=== PATIENT | female | born 1950 | race Caucasian/White ===

== ENCOUNTER → 2018-01-21 08:49 | Outpatient (CLI) | payer MEDICARE, OTHER, SELFPAY ==
[2018-01-21 13:27] LABS: Absolute Lymphocyte Count 1.83 X10^3/ul (0.83-4.51); Absolute Neutrophil Count 4.6 X10^3/uL (2.0-7.7); Basophil# 0.02 X10^3/uL; Basophil% 0.3 % (0-1); Eosinophil# 0.12 X10^3/uL; Eosinophils% 1.7 % (0-5); Hematocrit 42.5 % (37-47); Hemoglobin 14.1 g/dl (12.0-15.0); Lymphocyte # 1.83 X10^3/ul (4.0); Lymphocyte % 25.8 % (19-41); Mean Corp Hgb Conc 33.2 g/gl (32-36); Mean Corpuscular Hgb 31.1 pg (27.0-32.0); Mean Corpuscular Volume 93.8 fL (81-99); Mean Platelet Vol. 9.1 fl (6.2-12.0); Monocyte# 0.46 X10^3/uL; Monocyte% 6.5 % (0-10); Neutrophil # 4.63 X10^3/uL (2.7-7.7); Neutrophil % 65.4 % (47-70); Platelet Count 346 K/mm3 (150-450); RBC Distribution Width SD 46.5 fl (35.1-43.9); Red Blood Count 4.53 M/mm3 (4.2-5.4); White Blood Count 7.1 K/mm3 (4.4-11.0)
[2018-01-21 13:32] LABS: POSITIVE COUNT NO; POSITIVE DIFFERENTIAL NO; POSITIVE MORPHOLOGY NO
[2018-01-21 13:52] LABS: ALB/GLOB Ratio 1.2 RATIO (0.9-2.4); AST(SGOT) 20 U/L (15-37); Alanine Aminotransfer ALT/SGPT 34 U/L (13-56); Alkaline Phosphatase 48 U/L (45-117); Anion Gap 6 (5-15); BUN 10 mg/dL (7-18); BUN/Creat Ratio 15.3 RATIO (10-20); Calcium,Total 8.8 mg/dL (8.5-10.1); Chloride 99 mmol/L (98-107); Creatinine, Serum 0.65 mg/dL (0.55-1.02); EST Glomerular Filtration Rate 96 mL/min (>60); Est Glom Filt Rate - Afr Amer 116 mL/min (>60); Globulin 3.3 g/dL (2.2-4.2); Glucose 105 mg/dL (74-106); Potassium 3.5 mmol/L (3.5-5.1); Protein, Total 7.3 g/dL (6.4-8.2); Sodium Level 136 mmol/L (136-145); Thyroid Stim Hormone (TSH) 1.55 uIU/mL (0.358-3.74); Vitamin D,25 Hydroxy 41.2 ng/mL (29.95-100.01)
== END ==
PROVIDERS: Family Provider Family Medicine Geriatric Medicine; PCP Family Medicine Geriatric Medicine; Visit Provider Family Medicine Geriatric Medicine
DX: E55.9 Vitamin D deficiency, unspecified (principal); I10 Essential (primary) hypertension
CPT/HCPCS: 36415; 80053; 82306; 84443; 85025

== ENCOUNTER → 2018-06-13 16:51 | Outpatient (CLI) | payer MEDICARE, OTHER, SELFPAY ==
[2018-06-13 17:15] LABS: Absolute Neutrophil Count 4.5 X10^3/uL (2.0-7.7); Basophil# 0.02 X10^3/uL; Basophil% 0.3 % (0-1); Eosinophil# 0.09 X10^3/uL; Eosinophils% 1.3 % (0-5); Hematocrit 40.9 % (37-47); Hemoglobin 13.4 g/dl (12.0-15.0); Mean Corp Hgb Conc 32.8 g/gl (32-36); Mean Corpuscular Hgb 30.8 pg (27.0-32.0); Mean Platelet Vol. 8.8 fl (6.2-12.0); Monocyte# 0.58 X10^3/uL; Monocyte% 8.1 % (0-10); Neutrophil # 4.45 X10^3/uL (2.7-7.7); Neutrophil % 62.2 % (47-70); Platelet Count 305 K/mm3 (150-450); RBC Distribution Width CV 13.8 % (11.6-14.6); RBC Distribution Width SD 47.7 fl (35.1-43.9); Red Blood Count 4.35 M/mm3 (4.2-5.4); White Blood Count 7.2 K/mm3 (4.4-11.0)
[2018-06-13 17:28] LABS: POSITIVE COUNT NO; POSITIVE DIFFERENTIAL NO; POSITIVE MORPHOLOGY NO
[2018-06-13 17:38] LABS: ALB/GLOB Ratio 1.2 RATIO (0.9-2.4); AST(SGOT) 17 U/L (15-37); Alanine Aminotransfer ALT/SGPT 27 U/L (13-56); Albumin, Serum 3.7 g/dL (3.2-5.0); Alkaline Phosphatase 55 U/L (45-117); Amylase 45 U/L (25-115); Anion Gap 9 (5-15); BUN 17 mg/dL (7-18); Calcium,Total 8.6 mg/dL (8.5-10.1); Chloride 98 mmol/L (98-107); Creatinine, Serum 0.77 mg/dL (0.55-1.02); EST Glomerular Filtration Rate 79 mL/min (>60); Est Glom Filt Rate - Afr Amer 95 mL/min (>60); Globulin 3.2 g/dL (2.2-4.2); Glucose 125 mg/dL (74-106); Lipase 140 U/L (73-393); Potassium 3.6 mmol/L (3.5-5.1); Protein, Total 6.9 g/dL (6.4-8.2); Sodium Level 137 mmol/L (136-145)
== END ==
PROVIDERS: Family Provider Family Medicine Geriatric Medicine; PCP Family Medicine Geriatric Medicine; Visit Provider Family Medicine Geriatric Medicine
DX: R10.9 Unspecified abdominal pain (principal); N39.0 Urinary tract infection, site not specified
CPT/HCPCS: 36415; 74177; 80053; 82150; 83690; 85025; 87086; 87088; Q9967

== ENCOUNTER → 2018-06-20 10:07 | Outpatient (CLI) | payer MEDICARE, OTHER, SELFPAY ==
--- NOTE | 2018-06-20 10:10 | MRI_ITS ---
STUDY: MRI ABDOMEN WITHOUT CONTRAST REASON FOR EXAM: Female, 68 years old. abd pain-more to the right. Abnormal CT TECHNIQUE: Standardized fat and water weighted pulse sequences were obtained in all 3 orthogonal planes. COMPARISON: June 13, 2018 FINDINGS: The visualized lung bases are unremarkable. The visualized portions of the heart are within normal limits. Normal liver. Normal gallbladder and extrahepatic biliary system. Normal spleen. Once again note is made of a cyst associated with the tail of the pancreas. This cyst measures approximately 1.8 cm in diameter and other than the calcification that was identified on the periphery of the cyst best seen on prior CT exam the cyst otherwise has a simple appearance. On this study I see no evident connection of the cyst to the ductal system. I suspect it most likely represents a benign unilocular cyst. Consider six-month follow-up to assure stability and if stable annual screening a period of 3 years. If stable at that point than this finding is very likely to be benign. The pancreas otherwise has an unremarkable appearance. Normal bilateral adrenal glands. Normal right kidney. Normal left kidney. Normal visualized stomach. Normal small intestine. Normal colon. There is non-visualization of the appendix. Normal abdominal aorta. Normal inferior vena cava. Normal retroperitoneum. Normal abdominal wall. Normal osseous structures. MRI/MRCP Abdomen without Contrast IMPRESSION: Once again note is made of a cyst associated with the tail of the pancreas. This cyst measures approximately 1.8 cm in diameter and other than the calcification that was identified on the periphery of the cyst best seen on prior CT exam the cyst otherwise has a simple appearance. On this study I see no evident connection of the cyst to the ductal system. I suspect it most likely represents a benign unilocular cyst. Consider six-month follow-up to assure stability and if stable annual screening a period of 3 years. If stable at that point than this finding is very likely to be benign. The pancreas otherwise has an unremarkable appearance. Electronically Signed: Janay Merino MD at 16:37 EDT , Service support ,
== END ==
PROVIDERS: Family Provider Family Medicine Geriatric Medicine; PCP Family Medicine Geriatric Medicine; Visit Provider Family Medicine Geriatric Medicine
DX: K86.2 Cyst of pancreas (principal)
CPT/HCPCS: 74181

== ENCOUNTER → 2018-06-29 08:49 | Outpatient (CLI) | payer MEDICARE, OTHER, SELFPAY ==
--- NOTE | 2018-06-29 08:53 | BI_ITS ---
MAMMOGRAPHY - BILATERAL SCREENING REASON FOR EXAM: Female, 68 years old. Routine annual screening examination. PERTINENT HISTORY: Mother with breast cancer. Aunt with breast cancer. TECHNIQUE: Digital bilateral breast mary (3D mammographic acquisition) in the CC and MLO projections. 2-D mediolateral oblique (MLO) and craniocaudad (CC) views of both breasts were obtained. CAD: Full Field Digital Mammography with Computer Added Detection was performed. COMPARISON: Comparison is made with prior study dated June 14, 2017 and June 13, 2016. FINDINGS: Breast Composition: There are scattered areas of fibroglandular density. There are no dominant masses or suspicious calcifications. Stable gastric calcifications bilaterally. Stable calcifications in the deep slightly lateral portion of the right breast. No other significant abnormalities are identified. There has been no significant change since the prior study. BI/SCREENING MAMM (CAD), BILAT IMPRESSION: Stable bilateral screening mammogram. Yearly follow-up mammogram recommended. (A) ASSESSMENT CATEGORY: BIRADS Category 2: Benign. A letter regarding these results will be sent to the patient by the facility within 30 days. Approximately 10% of breast cancers are not detected by mammography. A normal mammogram should not delay biopsy of a clinically suspicious abnormality. [id number] Electronically Signed: Julio Ta MD at 8:47 EDT Tel [phone], Service support ,
== END ==
PROVIDERS: Family Provider Family Medicine Geriatric Medicine; PCP Family Medicine Geriatric Medicine; Visit Provider Obstetrics & Gynecology
DX: Z12.31 Encounter for screening mammogram for malignant neoplasm of breast (principal)
CPT/HCPCS: 77063; 77067

== ENCOUNTER → 2018-07-22 13:47 | Outpatient (CLI) | payer MEDICARE, OTHER, SELFPAY ==
[2018-07-22 16:31] LABS: Absolute Lymphocyte Count 2.14 X10^3/ul (0.83-4.51); Absolute Neutrophil Count 2.9 X10^3/uL (2.0-7.7); Basophil# 0.01 X10^3/uL; Basophil% 0.2 % (0-1); Eosinophil# 0.08 X10^3/uL; Eosinophils% 1.5 % (0-5); Hematocrit 41.1 % (37-47); Hemoglobin 13.3 g/dl (12.0-15.0); Lymphocyte # 2.14 X10^3/ul (4.0); Mean Corp Hgb Conc 32.4 g/gl (32-36); Mean Corpuscular Hgb 30.9 pg (27.0-32.0); Mean Corpuscular Volume 95.4 fL (81-99); Mean Platelet Vol. 9.2 fl (6.2-12.0); Monocyte# 0.31 X10^3/uL; Monocyte% 5.6 % (0-10); Neutrophil # 2.94 X10^3/uL (2.7-7.7); Neutrophil % 53.5 % (47-70); Platelet Count 313 K/mm3 (150-450); RBC Distribution Width CV 13.5 % (11.6-14.6); Red Blood Count 4.31 M/mm3 (4.2-5.4); White Blood Count 5.5 K/mm3 (4.4-11.0)
[2018-07-22 16:46] LABS: Vitamin D,25 Hydroxy 37.8 ng/mL (29.95-100.01)
[2018-07-22 16:53] LABS: ALB/GLOB Ratio 1.2 RATIO (0.9-2.4); AST(SGOT) 18 U/L (15-37); Alanine Aminotransfer ALT/SGPT 27 U/L (13-56); Albumin, Serum 3.8 g/dL (3.2-5.0); Alkaline Phosphatase 50 U/L (45-117); Anion Gap 9 (5-15); BUN 9 mg/dL (7-18); BUN/Creat Ratio 12.6 RATIO (10-20); Calcium,Total 8.8 mg/dL (8.5-10.1); Chloride 98 mmol/L (98-107); Creatinine, Serum 0.72 mg/dL (0.55-1.02); EST Glomerular Filtration Rate 86 mL/min (>60); Est Glom Filt Rate - Afr Amer 104 mL/min (>60); Globulin 3.3 g/dL (2.2-4.2); Glucose 92 mg/dL (74-106); Potassium 3.6 mmol/L (3.5-5.1); Protein, Total 7.1 g/dL (6.4-8.2); Sodium Level 135 mmol/L (136-145); Thyroid Stim Hormone (TSH) 1.62 uIU/mL (0.358-3.74)
[2018-07-22 17:11] LABS: POSITIVE COUNT NO; POSITIVE DIFFERENTIAL NO; POSITIVE MORPHOLOGY NO
[2018-07-24 12:33] LABS: Hep C Antibodies <0.1 s/co ratio (0.0-0.9)
== END ==
PROVIDERS: Family Provider Family Medicine Geriatric Medicine; PCP Family Medicine Geriatric Medicine; Visit Provider Family Medicine Geriatric Medicine
DX: I10 Essential (primary) hypertension (principal); Z13.89 Encounter for screening for other disorder; E55.9 Vitamin D deficiency, unspecified
CPT/HCPCS: 36415; 80053; 82306; 84443; 85025; 86803

== ENCOUNTER → 2019-01-16 14:19 | Outpatient (CLI) | payer MEDICARE, OTHER, SELFPAY ==
[2019-01-16 16:50] LABS: Absolute Lymphocyte Count 1.93 X10^3/ul (0.83-4.51); Absolute Neutrophil Count 2.9 X10^3/uL (2.0-7.7); Basophil# 0.02 X10^3/uL; Basophil% 0.4 % (0-1); Eosinophil# 0.08 X10^3/uL; Eosinophils% 1.5 % (0-5); Hematocrit 39.3 % (37-47); Hemoglobin 13.1 g/dl (12.0-15.0); Lymphocyte # 1.93 X10^3/ul (4.0); Mean Corp Hgb Conc 33.3 g/gl (32-36); Mean Corpuscular Hgb 30.5 pg (27.0-32.0); Mean Corpuscular Volume 91.6 fL (81-99); Mean Platelet Vol. 9.4 fl (6.2-12.0); Monocyte# 0.38 X10^3/uL; Monocyte% 7.1 % (0-10); Neutrophil # 2.94 X10^3/uL (2.7-7.7); Neutrophil % 54.8 % (47-70); Platelet Count 319 K/mm3 (150-450); RBC Distribution Width CV 13.5 % (11.6-14.6); RBC Distribution Width SD 44.4 fl (35.1-43.9); Red Blood Count 4.29 M/mm3 (4.2-5.4); White Blood Count 5.4 K/mm3 (4.4-11.0)
[2019-01-16 16:51] LABS: POSITIVE COUNT NO; POSITIVE DIFFERENTIAL NO; POSITIVE MORPHOLOGY NO
[2019-01-16 17:33] LABS: Vitamin D,25 Hydroxy 32.6 ng/mL (29.95-100.01)
[2019-01-16 17:36] LABS: ALB/GLOB Ratio 1.4 RATIO (0.9-2.4); AST(SGOT) 30 U/L (15-37); Alanine Aminotransfer ALT/SGPT 44 U/L (13-56); Alkaline Phosphatase 53 U/L (45-117); Anion Gap 7 (5-15); BUN 11 mg/dL (7-18); BUN/Creat Ratio 15.9 RATIO (10-20); Calcium,Total 8.5 mg/dL (8.5-10.1); Chloride 97 mmol/L (98-107); Creatinine, Serum 0.69 mg/dL (0.55-1.02); EST Glomerular Filtration Rate 89 mL/min (>60); Est Glom Filt Rate - Afr Amer 108 mL/min (>60); Globulin 2.9 g/dL (2.2-4.2); Glucose 82 mg/dL (74-106); Potassium 3.6 mmol/L (3.5-5.1); Protein, Total 6.9 g/dL (6.4-8.2); Sodium Level 133 mmol/L (136-145); Thyroid Stim Hormone (TSH) 1.28 uIU/mL (0.358-3.74)
== END ==
PROVIDERS: Family Provider Family Medicine Geriatric Medicine; PCP Family Medicine Geriatric Medicine; Visit Provider Family Medicine Geriatric Medicine
DX: I10 Essential (primary) hypertension (principal); E55.9 Vitamin D deficiency, unspecified
CPT/HCPCS: 36415; 80053; 82306; 84443; 85025

== ENCOUNTER → 2019-01-24 10:13 | Outpatient (CLI) | payer MEDICARE, OTHER, SELFPAY ==
--- NOTE | 2019-01-24 10:45 | MRI_ITS ---
STUDY: MR CHOLANGIOPANCREATOGRAPHY (MRCP) REASON FOR EXAM: Female, 68 years old. Follow-up MRI 6 months ago. Exist. No acute complaints. TECHNIQUE: Multisequence multiplanar MRI of the abdomen was performed without contrast. MRCP with 3-D volumetric reformatted images. MRI abdomen 06/20/2018, CT abdomen and pelvis 06/13/2018. COMPARISON: None. FINDINGS: Body wall soft tissues, osseous structures, distal esophagus, stomach, spleen, adrenal glands, bilateral kidneys, collecting systems and proximal ureters, retroperitoneum, and evaluated portions of small and large bowel exhibit no acute process. Normal liver, gallbladder, intrahepatic biliary tree and common bile duct. No significant pancreatic ductal ectasia. Minimal features of pancreatic atrophy. Simple appearing pancreatic tail cyst, sharply circumscribed margins, thin-walled, partially exhibit phytic, homogeneous internal T2 signal, intermediate internal T1 signal consistent with proteinaceous content. Greatest dimensions 1.76 cm anterior-posterior, 1.63 cm transverse, and 1.60 cm craniocaudal. No significant change compared to prior imaging. MRI/Abdomen without Contrast IMPRESSION: Simple appearing pancreatic tail cyst with a greatest dimension of 1.76 cm, no significant change compared to prior imaging. Follow-up surveillance imaging is recommended in 1 year. Electronically Signed: Huber Marcelino MD at 17:54 EDT Tel , Service support ,
== END ==
PROVIDERS: Family Provider Family Medicine Geriatric Medicine; PCP Family Medicine Geriatric Medicine; Referring Provider Family Medicine Geriatric Medicine; Visit Provider Family Medicine Geriatric Medicine
DX: K86.2 Cyst of pancreas (principal)
CPT/HCPCS: 74181

== ENCOUNTER → 2019-04-28 | Outpatient (CLI) | payer MEDICARE, OTHER, SELFPAY ==
--- NOTE | 2019-04-28 16:31 | RAD_ITS ---
HISTORY:HX FX LEFT KNEE, FALL AGAIN TODAY, PAIN POSTERIOR HX FX LEFT KNEE, FALL AGAIN TODAY, PAIN POSTERIOR COMPARISON: None FINDINGS: # of images incl. paperwork: 4 XR Knee Complete 4 Views or More: Left BONE AND JOINTS: There is slight irregularity medial tibial plateau however it appears relatively chronic linear area of low density that is seen at the articular cartilage. I would consider CT examination for further evaluation if clinically indicated. There is patellofemoral joint space narrowing as well as medial lateral joint space narrowing and marginal osteophytes. Spurring of the tibial spines. There is also patellofemoral joint space narrowing SOFT TISSUES: Small joint effusion No radiopaque foreign body. RAD/Knee 4 or More Views IMPRESSION: Slight irregularity at the medial tibial plateau however appears relatively chronic. The upright view suggested a small linear lucency. I would consider CT for further evaluation of clinically indicated. Small joint effusion Osteoarthritis at [id number] Reported and signed by: Berta Durbin DO Electronically Signed: Berta Durbin DO at 21:06 EDT Tel , Service support ,
== END | disposition home or self-care (01) ==
LOC: RAD 16:30
PROVIDERS: Family Provider Family Medicine Geriatric Medicine; PCP Family Medicine Geriatric Medicine; Referring Provider Family Medicine Geriatric Medicine; Visit Provider Family Medicine Geriatric Medicine
DX: M25.562 Pain in left knee (principal)
CPT/HCPCS: 73564

== ENCOUNTER → 2019-05-13 | Outpatient (CLI) | payer MEDICARE, OTHER, SELFPAY ==
--- NOTE | 2019-05-13 07:21 | CT_ITS ---
STUDY: CT LEFT KNEE WITHOUT CONTRAST REASON FOR EXAM: Female, 69 years old. Left knee pain. Recent fall. RADIATION DOSAGE (If Supplied By Facility): CTDIvol = ( 11.37 ) mGy, DLP = ( 242.64 ) mGycm TECHNIQUE: Transaxial CT imaging of the knee was performed. Coronal and sagittal images were reformatted. Individualized dose optimization techniques were used for this CT. COMPARISON: Comparison is made with prior radiograph dated April 28, 2019. FINDINGS: There is a 3 cm Bard 1.4 cm spur along the posterior medial aspect of the distal metaphysis of the femur. There is also evidence of a 7.7 mm x 16.9 mm while described lucency in the medial posterior aspect of the distal femoral metaphysis suggestive of a nonossifying fibroma. Moderate degree of medial joint space narrowing with spurs. Moderate degree of joint space narrowing involving the femoral patellar joint. There is also evidence of a 9 mm spur along the medial anterior femoral condyle. Normal lateral femoral condyle and lateral tibial plateau. There is preservation of the articular joint space of the lateral knee compartment. Normal proximal tibiofibular articulation. There is no joint effusion. The quadriceps tendon is grossly normal. The patellar tendon is grossly normal. Normal Hoffa's fat pad. The soft tissues are unremarkable. CT/Extremity Lower without Contra IMPRESSION: Degenerative changes as described. No fracture is seen. Electronically Signed: Julio Ta, at 14:51 EDT , Service support ,
== END | disposition home or self-care (01) ==
LOC: CT 07:18
PROVIDERS: Family Provider Family Medicine Geriatric Medicine; PCP Family Medicine Geriatric Medicine; Referring Provider Family Medicine Geriatric Medicine; Visit Provider Family Medicine Geriatric Medicine
DX: M25.562 Pain in left knee (principal)
CPT/HCPCS: 73700

== ENCOUNTER → 2019-06-30 09:56 | Outpatient (CLI) | payer MEDICARE, OTHER, SELFPAY ==
--- NOTE | 2019-06-30 10:01 | BI_ITS ---
MAMMOGRAPHY - BILATERAL SCREENING REASON FOR EXAM: Female, 69 years old. Routine annual screening examination. PERTINENT HISTORY: Mother with breast cancer. Aunt with breast cancer. TECHNIQUE: Digital bilateral breast cortez (3D mammographic acquisition) in the CC and MLO projections. 2-D mediolateral oblique (MLO) and craniocaudad (CC) views of both breasts were obtained. CAD: Full Field Digital Mammography with Computer Added Detection was performed. COMPARISON: Comparison is made with prior study dated June 29, 2018 and June 14, 2017. FINDINGS: Breast Composition: There are scattered areas of fibroglandular density. There are no dominant masses or suspicious calcifications. Stable appearance of the vascular calcifications bilaterally. Stable benign-appearing calcifications in the deep slightly lateral portion of the right breast. No other significant abnormalities are identified. There has been no significant change since the prior study. BI/SCREEN MAMM (CAD) W/CORTEZ BILAT IMPRESSION: Stable bilateral screening mammogram. Yearly follow-up mammogram recommended. (A) ASSESSMENT CATEGORY: BIRADS Category 2: Benign. A letter regarding these results will be sent to the patient by the facility within 30 days. Approximately 10% of breast cancers are not detected by mammography. A normal mammogram should not delay biopsy of a clinically suspicious abnormality. [id number] Electronically Signed: Julio Ta, at 12:46 EDT , Service support ,
== END ==
PROVIDERS: Family Provider Family Medicine Geriatric Medicine; PCP Family Medicine Geriatric Medicine; Referring Provider Obstetrics & Gynecology; Visit Provider Obstetrics & Gynecology
DX: Z12.31 Encounter for screening mammogram for malignant neoplasm of breast (principal)
CPT/HCPCS: 77063; 77067

== ENCOUNTER → 2019-07-23 10:01 | Outpatient (CLI) | payer MEDICARE, OTHER, SELFPAY ==
[2019-07-23 12:43] LABS: Absolute Lymphocyte Count 1.57 X10^3/uL (0.83-4.51); Absolute Neutrophil Count 4.2 X10^3/uL (2.0-7.7); Basophil# 0.03 X10^3/uL; Basophil% 0.5 % (0-1); Eosinophils% 1.6 % (0-5); Hematocrit 40.2 % (37-47); Hemoglobin 13.1 g/dL (12.0-15.0); Lymphocyte # 1.57 X10^3/ul (4.0); Lymphocyte % 24.9 % (19-41); Mean Corp Hgb Conc 32.6 g/dL (32-36); Mean Corpuscular Volume 95.3 fL (81-99); Monocyte# 0.42 X10^3/uL; Monocyte% 6.7 % (0-10); NRBC Flagged by Analyzer 0 % (0-5); Neutrophil # 4.18 X10^3/uL (2.7-7.7); Neutrophil % 66.1 % (47-70); Platelet Count 323 K/mm3 (150-450); RBC Distribution Width CV 13.1 % (11.6-14.6); Red Blood Count 4.22 M/mm3 (4.2-5.4); White Blood Count 6.3 K/mm3 (4.4-11.0)
[2019-07-23 13:19] LABS: ALB/GLOB Ratio 1.2 RATIO (0.9-2.4); AST(SGOT) 23 U/L (15-37); Alanine Aminotransfer ALT/SGPT 34 U/L (13-56); Albumin, Serum 3.8 g/dL (3.2-5.0); Alkaline Phosphatase 55 U/L (45-117); Anion Gap 9 (5-15); BUN 11 mg/dL (7-18); BUN/Creat Ratio 14.6 RATIO (10-20); Calcium,Total 9.2 mg/dL (8.5-10.1); Chloride 99 mmol/L (98-107); Creatinine, Serum 0.75 mg/dL (0.55-1.02); EST Glomerular Filtration Rate 81 mL/min (>60); Est Glom Filt Rate - Afr Amer 98 mL/min (>60); Globulin 3.3 g/dL (2.2-4.2); Glucose 99 mg/dL (74-106); Potassium 3.5 mmol/L (3.5-5.1); Protein, Total 7.1 g/dL (6.4-8.2); Sodium Level 135 mmol/L (136-145); Thyroid Stim Hormone (TSH) 1.45 uIU/mL (0.358-3.74)
[2019-07-23 13:46] LABS: Vitamin D,25 Hydroxy 36.8 ng/mL (29.95-100.01)
== END ==
PROVIDERS: Family Provider Family Medicine Geriatric Medicine; PCP Family Medicine Geriatric Medicine; Visit Provider Family Medicine Geriatric Medicine
DX: I10 Essential (primary) hypertension (principal); E55.9 Vitamin D deficiency, unspecified
CPT/HCPCS: 36415; 80053; 82306; 84443; 85025

== ENCOUNTER 2019-07-24 11:30 | Outpatient (RCR) | payer MEDICARE, OTHER, SELFPAY ==
--- NOTE | 2019-05-21 16:52 | HP.PTEVAL ---
Patient's Visit Information MARYCRUZ GUTIERREZ is a 69 year old F referred to Physical Therapy by Albert Mcleod MD with a diagnosis of LEFT KNEE OA. Date of Evaluation: 05/21/19 Physical Therapist: Heavenly Johnson PT, Cert MDT - Visit Plan Frequency: 2-3x /Week Duration: 4-6 Weeks Plan: AQUATIC THERAPY FOR PAIN RELEIF, POSTURE CORRECTION/STRENGTHENING, INSTRUCTION IN APPROPRIATE BODY MECHANICS AND ACTIVITY MODIFICATIONS. DLS STARTING WITH A NEUTRAL SPINE PROGRESSING ROM TOLERATED. STEVE LE ROM, STRETCHING AND STRENGTHENING. HEP INSTRUCTION. - Subjective Findings: Work/Leisure: RETIRED. YARD AND HOUSEWORK. LIVES ALONE. Disability: NO. Present symptoms: LEFT KNEE PAIN. Present since: CHRONIC KNEE PAIN SINCE FX ABOUT 2 YEARS AGO. Pain Scale: WORSE 8/10, LEAST 2/10. Currently: 5/10. Commenced as a result of: FALL ABOUT 3 WEEKS AGO. WAS HELPING CLEAN UP FROM FLOOD AND TRIPPED AND FELL ON KNEES. HAS HAD PAIN FOR 2 YEARS EVER SINCE THE FX THOUGH. Symptoms at onset: LEFT KNEE. Worse: BENDING IT, WALKING, GETTING IN AND OUT OF CAR, IN AND OUT OF BATH TUB, STEPS, PROLONGED STANDING. Better: SITTING, ICE, HEAT, ALEVE, TYLONOL. Disturbed sleep: NO. Previous history/Previous treatment: LEFT KNEE CARTILEGE REMOVAL ABOUT 10 YEARS AGO. FX'D LEFT KNEE CAP ABOUT 2 YEARS AGO WHEN HIT IT ON A STEP FALLING. NO PHYSICAL THERAPY. NO INJECTIONS. Gait: LIMPING ON LLE. NO AD'S. Accidents: SEE FALLS ABOVE. Imaging: LEFT KNEE X-RAY AND CT - REASON FOR EXAM: Female, 69 years old. Left knee pain. Recent fall. RADIATION DOSAGE (If Supplied By Facility): CTDIvol = ( 11.37 ) mGy, DLP =. ( 242.64 ) mGycm. TECHNIQUE: Transaxial CT imaging of the knee was performed. Coronal and. sagittal images were reformatted. Individualized dose optimization techniques were used for this CT. COMPARISON: Comparison is made with prior radiograph dated April 28, 2019. . FINDINGS: There is a 3 cm Bard 1.4 cm spur along the posterior medial aspect of the. distal metaphysis of the femur. There is also evidence of a 7.7 mm x 16.9. mm while described lucency in the medial posterior aspect of the distal. femoral metaphysis suggestive of a nonossifying fibroma. Moderate degree. of medial joint space narrowing with spurs. Moderate degree of joint space. narrowing involving the femoral patellar joint. There is also evidence of. a 9 mm spur along the medial anterior femoral condyle. Normal lateral femoral condyle and lateral tibial plateau. There is. preservation of the articular joint space of the lateral knee compartment. Normal proximal tibiofibular articulation. There is no joint effusion. The quadriceps tendon is grossly normal. The patellar tendon is grossly. normal. Normal Hoffa's fat pad. The soft tissues are unremarkable. PMH: HTN. OTHER: THIS EPISODE. WENT TO [facility] X [facility]. [facility] TOLD HER HER TIBIA WAS OUT AND HE PUT IT BACK IN. - Objective THIS PATIENT AMBULATES INDEP'LY INTO PT LIMPING ON HER LLE BUT NOT USING ANY ASSISTIVE DEVICES. HER LEFT KNEE IS SWOLLEN AND TENDER. RIGHT LE ROM AND STRENGTH IS WFL BUT LLE IS NOT. LLE STRENGTH: HIP 3+/5, KNEE EXT 2+/5, KNEE FLEX 2+/5, ANKLE 5/5. LEFT KNEE ROM IN SUPINE WITH A HEEL SLIDE IS -27 DEG FLEX TO 90 DEG FLEXION WITH ERP INTO BOTH FLEX AND EXT. STEVE LE LIGHT TOUCH SENSATION APPEARS INTACT AND SYMMETRICA. - Goals Goal 1:: DECREASE C/O LEFT KNEE PAIN Goal Time Frame: 4-6 Weeks Goal 2:: IMPROVE STANDING, WALKING, BENDING, ADL, RECREATIONAL AND HOUSEWORK FUNCTION Goal Time Frame: 4-6 Weeks Goal 3:: INDEP HEP Goal Time Frame: 4-6 Weeks - Rehabilitation Potential Rehabilitation Potential: Fair - Anticipated Interventions Patient/Client Instruction: Educate patient on: Condition, Plan of Care, Risk Factors, Benefits of Fitness Program For the Purpose of:: To improve self management Therapeutic Exercise to Include: Strength training, Flexibilty training, Gait and locomotor training, In an aquatic setting, Passive ROM, Active ROM For the Purpose of:: To decrease pain, To increase ROM, To improve muscle performance and motor function, To increase tolerance to activity/condition/position, To improve ability of physical actions for home/community/work/leisure, To improve gait and locomotor functions Thank you for the opportunity to evaluate your patient. For Medicare and Medicare HMO plans, please review the plan of care and approve it. It will need to be FAXED BACK to us at [phone] for Medicare purposes. For Medicare only, by signing this I certify the plan of care. Please let me know if there are questions or concerns regarding this plan of care. Physician Signature: Date:
--- NOTE | 2019-06-13 10:44 | HP.PTREVAL ---
Albert Mcleod MD, It has been my pleasure to treat MARYCRUZ GUTIERREZ over the last 10 visits for LEFT KNEE OA. Please see the progress note below for an update on the physical therapy plan of care! Subjective: PATIENT REPORTS SHE CAN BEND HER KNEE TO GO UP AND DOWN STEPS BETTER NOW. SHE REPORTS SHE CAN ALSO WALK FURTHER WITHOUT IT BOTHERING HER MUCH IT DID BEFORE THERAPY. PATIENT REPORTS HER KNEE IS BOTHERING HER NOW BECAUSE SHE HAS BEEN UP ON IT ALL MORNING DOING TOMATOES. PATIENT REPORTS SHE FEELS THE THERAPY IS WORKING. I CAN DO MORE THAN I COULD BEFORE. STATES SHE WOULD LIKE TO CONTINUE. Objective/Function: PATIENT IS MAKING PROGRESS TOWARD ALL PT GOALS. UPON EXAM TODAY: SHE AMBULATES INDEP'LY INTO PT LIMPING ON HER LLE BUT NOT USING ANY ASSISTIVE DEVICES. SHE IS NOT LIMPING BAD SHE WAS AT INITIAL EVAL. HER LEFT KNEE IS STILL SWOLLEN AND TENDER BUT IMPROVING. LLE STRENGTH IS ALSO IMPROVING: HIP 4-/5, KNEE EXT 3-/5, KNEE FLEX 3-/5, ANKLE 5/5. LEFT KNEE ROM IN SUPINE WITH A HEEL SLIDE IS -20 DEG FLEX TO 108 DEG FLEXION WITH ERP INTO BOTH FLEX AND EXT. PATIENT IS RESPONDING WELL TO AQUATIC THERAPY. SHE DEMONSTRATED AND COMMUNICATED A GOOD UNDERSTANDING OF ALL INSTRUCTIONS AFTER GIVEN. Plan Plan: CONTINUE PHYSICAL THERAPY INCLUDING AQUATIC THERAPY 3 TIMES A WEEK FOR 3-4 WKS FOR PAIN RELEIF, POSTURE CORRECTION/STRENGTHENING, INSTRUCTION IN APPROPRIATE BODY MECHANICS AND ACTIVITY MODIFICATIONS. DLS STARTING WITH A NEUTRAL SPINE PROGRESSING ROM TOLERATED. STEVE LE ROM, STRETCHING AND STRENGTHENING. HEP INSTRUCTION. PATIENT IS AGREEABLE TO THIS POC. Goals Goal 1:: DECREASE C/O LEFT KNEE PAIN Goal Time Frame: 4-6 Weeks Goal Progress: Progressing Goal 2:: IMPROVE STANDING, WALKING, BENDING, ADL, RECREATIONAL AND HOUSEWORK FUNCTION Goal Time Frame: 4-6 Weeks Goal Progress: Progressing Goal 3:: INDEP HEP Goal Time Frame: 4-6 Weeks Goal Progress: Progressing Anticipated Interventions Patient/Client Instruction: Educate patient on: Condition, Plan of Care, Risk Factors, Benefits of Fitness Program For the Purpose of:: To improve self management Therapeutic Exercise to Include: Strength training, Flexibilty training, Gait and locomotor training, In an aquatic setting, Passive ROM, Active ROM For the Purpose of:: To decrease pain, To increase ROM, To improve muscle performance and motor function, To increase tolerance to activity/condition/position, To improve ability of physical actions for home/community/work/leisure, To improve gait and locomotor functions Please do not hesitate to contact me at [phone] by phone or if you have questions or concerns regarding this new plan of care! Sincerely, Heavenly Johnson, PT, Cert MDT
--- NOTE | 2019-07-14 11:04 | HP.PTREVAL ---
Albert Mcleod MD, It has been my pleasure to treat MARYCRUZ GUTIERREZ over the last 19 visits for LEFT KNEE OA. Please see the progress note below for an update on the physical therapy plan of care! Subjective: PATIENT REPORTS HER KNEE DOESN'T HURT CONSTANTLY LIKE BEFORE. SHE REPORTS SHE CAN DO STEPS BETTER AND WALK FURTHER. GOING DOWN STEPS IS STILL A PROBLEM THOUGH. JUST CAME FROM [facility]. Objective/Function: UPON EXAM TODAY PATIENT IS NOT DEMONSTRATING INCREASED LEFT KNEE ROM BUT SHE REPORTS DECREASED PAIN AND IMPROVED FUNCTION. SHE AMBULATES INDEP'LY INTO PT LIMPING ON HER LLE BUT NOT USING ANY ASSISTIVE DEVICES. SHE IS NOT LIMPING BAD SHE WAS AT INITIAL EVAL. HER LEFT KNEE IS STILL SWOLLEN AND TENDER BUT HAS IMPROVED. LEFT KNEE ROM IN SUPINE WITH A HEEL SLIDE IS -20 DEG FLEX TO 108 DEG FLEXION WITH ERP INTO BOTH FLEX AND EXT. PATIENT IS RESPONDING WELL TO AQUATIC THERAPY. LEFS HAS IMPROVED TO 56 Plan Plan: CONT AQUATIC THERAPY ONE TIME A WEEK X 4 THEN RE-CHECK BASED ON PROGRESS MADE BUT NEED FOR MORE IMPROVEMENT AND TO HELP PATIENT SUCCESSFULLY TRANSITION TO INDEP PROGRAM WITH ADVANCES. PATIENT IS AGEWWABLE. Goals Goal 1:: DECREASE C/O LEFT KNEE PAIN Goal Time Frame: 4-6 Weeks Goal Progress: Progressing Goal 2:: IMPROVE STANDING, WALKING, BENDING, ADL, RECREATIONAL AND HOUSEWORK FUNCTION Goal Time Frame: 4-6 Weeks Goal Progress: Progressing Goal 3:: INDEP HEP Goal Time Frame: 4-6 Weeks Goal Progress: Progressing Anticipated Interventions Patient/Client Instruction: Educate patient on: Condition, Plan of Care, Risk Factors, Benefits of Fitness Program For the Purpose of:: To improve self management Therapeutic Exercise to Include: Strength training, Flexibilty training, Gait and locomotor training, In an aquatic setting, Passive ROM, Active ROM For the Purpose of:: To decrease pain, To increase ROM, To improve muscle performance and motor function, To increase tolerance to activity/condition/position, To improve ability of physical actions for home/community/work/leisure, To improve gait and locomotor functions Please do not hesitate to contact me at [phone] by phone or if you have questions or concerns regarding this new plan of care! Sincerely, Heavenly Johnson, PT, Cert MDT
--- NOTE | 2019-08-06 17:51 | HP.PT.NRP ---
HP - Discharge Summary (1) - Patient Information MARYCRUZ GUTIERREZ was seen in my office for initial evaluation on 05/21/19. The following Plan of Care was established for this patient: Initial Frequency: 2-3x /Week Initial Duration: 4-6 Weeks - Anticipated Interventions Patient/Client Instruction: Educate patient on: Condition, Plan of Care, Risk Factors, Benefits of Fitness Program For the Purpose of:: To improve self management Therapeutic Exercise to Include: Strength training, Flexibilty training, Gait and locomotor training, In an aquatic setting, Passive ROM, Active ROM For the Purpose of:: To decrease pain, To increase ROM, To improve muscle performance and motor function, To increase tolerance to activity/condition/position, To improve ability of physical actions for home/community/work/leisure, To improve gait and locomotor functions This patient was last seen in our office 07/24/19. Pertinent comments regarding their Physical therapy will appear below: I RECEIVED A NOTE TO PLEASE D/C THIS CHART BECAUSE PATIENT IS GOING TO HAVE A TOTAL KNEE REPLACEMENT. At this point I will be discontinuing this patient from physical therapy. I would be happy to see this patient again in the future if found appropriate by the physician. Thank you! Heavenly Johnson, PT, Cert MDT
== END 2019-07-24 19:00 | disposition home or self-care (01) ==
LOC: PT 11:30
PROVIDERS: Family Provider Family Medicine Geriatric Medicine; PCP Family Medicine Geriatric Medicine; Referring Provider Family Medicine Geriatric Medicine; Visit Provider Family Medicine Geriatric Medicine
DX: M17.12 Unilateral primary osteoarthritis, left knee (principal)
CPT/HCPCS: 97113; 97161; 97530

== ENCOUNTER → 2019-07-30 09:53 | Outpatient (CLI) | payer MEDICARE, OTHER, SELFPAY ==
--- NOTE | 2019-07-30 10:00 | BD_ITS ---
STUDY: DUAL ENERGY X-RAY ABSORPTIOMETRY / DXA REASON FOR EXAM: Female, 69 years old. The patient is postmenopausal. Loss of height. TECHNIQUE: Bone Mineral Density (BMD) measurements of lumbar spine and bilateral hips were obtained. COMPARISON: Comparison is made with prior examination June 14, 2017. FINDINGS: Lumbar Spine (L1-L4): g/cm2 (1.037) / T-score (-1.4) / Z-score (0.3) Findings are suggestive of osteopenia with a low fracture risk. Left Femur Total: g/cm2 (0.782) / T-score (-1.8) / Z-score (-0.3) Left Femoral Neck: g/cm2 (0.780) / T-score (-1.9) / Z-score (-0.1) Right Femur Total: g/cm2 (0.72) / T-score (-1.8) / Z-score (-0.3) Right Femoral Neck: g/cm2 (0.734) / T-score (-2.2) / Z-score (-0.4) The T-Scores on the most recent prior examination were: Lumbar Spine (L1-L4): There has been improvement of bone density since the previous examination. Left Femur Total: which represents an improvement of 4.8%. Right Femur Total: which represents an improvement of 5.4%. BD/Dexa Bone Density Study IMPRESSION: The patient is considered osteopenic as outlined below according to World Santi Organization (WHO) criteria with a high fracture risk. There has been improvement of bone density since the previous examination. Reference Information: The T-score is the number of standard deviations above or below the standard which is normal for young adults at their peak bone mineral density. The World Health Organization (WHO) interprets the T-scores as follows: Above -1 Normal bone density Between -1 and -2.5 Osteopenia Equal to / or below -2.5 Osteoporosis As a practical clinical guideline, osteopenia may be graded as follows: Mild -1 through -1.5 Moderate -1.6 through -2.0 Severe -2.1 through -2.4 The Z-score is the number of standard deviations above or below age-matched controls. A Z-score of less than -1.5 would be considered abnormal. References: 1. NIH Osteoporosis and Related Bone Diseases http://www.osteo.org 2. International Society for Clinical Densitometry http://www.iscd.org 3. National Osteoporosis Foundation http://www.nof.org Electronically Signed: Julio Ta, at 13:33 EDT , Service support ,
== END ==
PROVIDERS: Family Provider Family Medicine Geriatric Medicine; PCP Family Medicine Geriatric Medicine; Referring Provider Family Medicine Geriatric Medicine; Visit Provider Family Medicine Geriatric Medicine
DX: Z78.0 Asymptomatic menopausal state (principal)
CPT/HCPCS: 77080

== ENCOUNTER 2019-08-26 12:45 | Observation (INO) | payer MEDICARE, OTHER, SELFPAY ==
[2019-07-30 13:44] VITALS: BMI 30.4
[2019-08-12 10:16] VITALS: BP 142/86; PULSE 78; RESP 16; TEMP 37.1; O2SAT 94; BMI 30.9
--- NOTE | 2019-08-12 10:35 | SDCEKG_ITS ---
Test Reason : Blood Pressure : / mmHG Vent. Rate : 071 BPM Atrial Rate : 071 BPM P-R Int : 168 ms QRS Dur : 076 ms QT Int : 392 ms P-R-T Axes : 046 -31 025 degrees QTc Int : 425 ms Normal sinus rhythm Left axis deviation Cannot rule out Anterior infarct , age undetermined Abnormal ECG Confirmed by VERONICA WHARTON, YOLANDE ([id number]), editorial writer MASHA MEDRANO ([id number]) on 08/19/2019 2:48:40 PM Referred By: Ollie Graves Confirmed By:YOLANDE MARTIN MD
[2019-08-19] MEDS: Celecoxib 200 MG Capsule 400 MG PO ×2 (07:00→08:30)
[2019-08-19] MEDS: Gabapentin 600 MG Tablet PO ×2 (07:00→08:30)
[2019-08-19] MEDS: Scopolamine 1mg/72hr Patch 1 PATCH TRANSDERM. (08:30)
[2019-08-19] MEDS: Acetaminophen 500 MG Tablet 1000 MG PO (08:30)
[2019-08-19] MEDS: Cefazolin 2 GM in 0.9% Normal Saline 100 ML IV (10:39)
[2019-08-19] MEDS: dexAMETHasone 10 MG/ML Vial IV (11:05)
[2019-08-25 09:41] VITALS: BMI 30.4
--- NOTE | 2019-08-25 13:30 | HP.PCM_ITS ---
History and Physical Date of Admission: 08/26/19 Intake Vital Signs 07/30/19 Height 4 ft 11.5 in 07/30/19 Weight: 153 lb 07/30/19 Body Mass Index (BMI) 30.4 Intake Visit Reasons: LEFT KNEE Is patient in pain?: Yes Pain scale (1-10): 3 Allergies No Known Allergies Allergy (Unverified 07/30/19 13:45) Medications calcium phosphate-vitamin D3 250 mg calcium-500 unit chewable tablet tab PO tab 07/30/19 [History Confirmed 07/30/19] cholecalciferol (vitamin D3) 1,000 unit capsule 1,000 unit PO DAILY 07/30/19 [History Confirmed 07/30/19] losartan 50 mg-hydrochlorothiazide 12.5 mg tablet 1 tab PO DAILY 07/30/19 [Hist ory Confirmed 07/30/19] ggkgydzt-nyg-gdzsq acid 0.4 mg-lycopene 300 mcg-lutein 250 mcg tablet 1 tab PO DAILY 07/30/19 [History Confirmed 07/30/19] PFSH Medical History (Updated 07/30/19 @ 13:48 by Marisela Reynolds) Hypertension (Chronic) Social History (Updated 07/30/19 @ 15:13 by Ollie Graves DO) Smoking Status: Never smoker HPI LEFT KNEE: Chief Complaint: Referral from Dr. Mcleod left knee pain Details: Parts of this documentation were recorded by a scribe, this docum entation accurately reflects the service provided and the decisions made by me, Ollie Graves DO 07/30/19 [id number]. MARYCRUZ GUTIERREZ is a 69 year old F here today referred by Dr Mcleod for left knee pain. Patient notes that she has had knee pain for a few years with it progressively worsening. She complains of pain over her anteriomedial knee. Patient states that she has not been able to flex her knee a few months. Patient states that she fractured her patella 2-3 years ago. Patient was put into a brace for about 2 months. She complains of knee swelling. Patient notes that she has popping and clicking at times. She notes that she has instability, not frequently. She ambulates with an antalgic gait. Patient has increased pain with ambulating down a hill. Patient feels like she has something moving within her knee. She completed physical therapy which helped slightly with her range of motion. Patient denies any knee brace. She denies any steroid injection. She had a CT scan and an xray which is here for review. Patient takes tylenol for pain. Ortho Exam Right Knee Patella Translation: 1 Left Knee Skin/Wound: No ecchymosis, No erythema, Yes swelling Homans Sign: No Knee ROM: Yes ROM-Extension -20 to 0 (-20), Yes ROM-Flexion 0-140 (80) Examination: Yes med jt line tenderness Stability: NML: Valgus 30, NML: Varus 30 Apprehension with Lateral Translation: No Patella Translation: 1 Patella Grind: Yes Supplemental Info 04/28/2019 x-ray left knee nfhz-tm-fwag worse medially varus deformity large osteophytes joint space collapse Assessment & Plan Problems 1. Primary osteoarthritis of left knee M17.12 Plan Educated the patient about the anatomy of her knee and etiology of her pain. Spoke with her about her options- a steroid injection which might help short term, a gel injection which might not help with her advanced arthritis, glucosamine chondrotin, oral anti-inflammatory, physical therapy which she has completed, bracing or a total knee replacement. Spoke with her about the surgery procedure and recovery. Explained the options following her surgery. Explained the importance of knee range of motion following surgery, she is at an increased risk of needing a manipulation due to her pre-op stiffness. She will need to take an oral antibiotic prior to cleanings lifelong. Spoke with her about iovera treatment. Follow up in for Iovera treatment and then postop total knee or sooner if pain, swelling, numbness or associated symptoms, or concerns develop. All questions answered. Patient in agreement of plan. Will forward a copy to Dr. Mcleod. thank you for this consultation Coding Level of Care Code 55833 Diagnoses Primary osteoarthritis of left knee M17.12 ??Osteoarthritis type: primary I have re-examined the patient. There are no clinical changes since date of exam
[2019-08-26] VITALS (12 sets, daily range): BP systolic 108–143; BP diastolic 52–81; PULSE 71–90; RESP 16–18; TEMP 36.2–37.1; O2SAT 96–100; BMI 31.4
[2019-08-26] MEDS: Scopolamine 1mg/72hr Patch 1 PATCH TRANSDERM. (09:05)
[2019-08-26] MEDS: Magnesium Sulfate 4gm/100mL 4 GM/100 ML IV.SOLN. IV (09:05)
[2019-08-26] MEDS: Celecoxib 200 MG Capsule 400 MG PO (09:31)
[2019-08-26] MEDS: Lactated Ringers 1,000 ML 100 ML IV (09:31)
[2019-08-26] MEDS: Gabapentin 600 MG Tablet PO (09:32)
[2019-08-26] MEDS: Acetaminophen 500 MG Tablet 1000 MG PO ×2 (09:32→21:48)
[2019-08-26 09:50] LABS: Bedside Glucose 176 mg/dL (70-110)
[2019-08-26] MEDS: Cefazolin 2 GM in 0.9% Normal Saline 100 ML IV (10:39)
[2019-08-26] MEDS: dexAMETHasone 10 MG/ML Vial IV (11:05)
[2019-08-26] MEDS: Bupivacaine 0.5% PF 10 ML VIAL (12:14)
[2019-08-26] MEDS: 0.9% Normal Saline (Pres. free 10 ML Vial ×2 (12:14)
[2019-08-26] MEDS: Betamethasone/Betamethasone 30 MG/5 ML Vial (12:14)
[2019-08-26] MEDS: Epinephrine (1 mg/ml) 1 MG/ML VIAL (12:14)
--- NOTE | 2019-08-26 12:50 | OP.PCM_ITS ---
Report of Operation Date of Procedure: 08/26/19 Description of Surgical Findings:: Preoperative diagnosis: Left knee DJD Postoperative diagnosis: Same Procedure: Left total knee arthroplasty Implant: [employer] triathlon cemented left femoral component size 4, cemented tibial baseplate size 4, cemented asymmetric patella size 32, polyethylene X3 size 9 CS Anesthesia: Spinal with adductor canal block Tourniquet time: 71 minutes at 300 mmHg Complications: None Condition: Stable to PACU Estimated blood loss: 25 cc Indication for procedure: This is a 69-year-old female with long standing degenerative joint disease of the knee who has failed conservative treatment and wished to proceed with elective total knee arthroplasty. Risk benefits and alternatives were reviewed including; risk of bleeding, infection, nerve artery and tissue damage, continued pain, postoperative stiffness, venous thromboembolism, need for postoperative rehabilitation, mechanical feel to the knee, and expected postoperative course. Procedure: The patient was met in the preoperative holding area. The operative extremity was identified by both patient and physician and was marked. Patient was met by anesthesia. An adductor canal block was placed by anesthesia postoperatively the patient was brought back to the operating room on a wheeled cart and transferred to the operating table in the supine position. Anesthesia was started. A well-padded tourniquet was placed on the operative extremity. The patient was prepped and draped in the usual sterile fashion. A timeout was called to ensure the proper patient procedure and extremity were being contemplated. An Esmarch was used to exsanguinate the extremity. The tour niquet was inflated. A 10 blade scalpel was used to make a midline incision down through the skin and subcutaneous tissue. Skin retractors placed. Bovie was used to perform meticulous hemostasis. full-thickness flaps were elevated medial and lateral along the joint capsule. A deep blade scalpel was used to perform a medial parapatellar arthrotomy. The knee was brought to full extension. A Bovie was used to release the soft tissues off the most proximal aspect of the medial tibial plateau a three-quarter inch curved osteotome was also used for this process. The infrapatellar fat pad was excised. The fat pad was excised partially anterior lateral portion the anterior medial was elevated from the femur. the patella was everted. The knee was brought into flexion. An intramedullary drill was used followed by flexible intramedullary guide td. The distal femoral cutting block was placed and set to remove 10 mm of bone and 5 degrees of valgus. The block was secured with pins and an oscillating saw was used to complete the distal femoral cut. During this, and all bony cuts retractors were used to protect the collateral ligaments. At this point a femoral sizer was used to measure the AP dimension of the femur. The sizer block was pinned parallel to the epicondylar access for external rotation. The sizing block was removed and the appropriately sized 4-in-1 cutting block was placed over the previously made pinholes. It was checked with an mulu wing and the block was secured with pins. An oscillating saw was used to complete the anterior cut followed by the posterior cut followed by the posterior chamfer cut followed by the anterior chamfer cut. The block was removed as well as the fragments. A ronguer was used to remove excess osteophytes. The medial and lateral meniscus were excised as well as the ACL. At this point a PCL retractor was placed and an intramedullary drill was passed down the tibial canal followed by a solid intramedullary guide td. The tibial cutting block was attached and set to remove 9 mm of bone from the high side. This was checked with an external alignment drop td for slope and tilt. It was pinned into place. An oscillating saw was used to complete the tibial plateau cut and the block was removed. A large osteotome was used to elevate the fragment and a Priscilla and a Bovie were used to free the fragment from the surrounding soft tissue. A rongeur was once again used to remove osteophytes a lamina manager behavior was used to evaluate the posterior capsular structures. A three-quarter inch curved osteotome was used to remove posterior osteophytes. A spacer block was inserted in both extension and flexion to ensure adequate spacing. Trials were inserted full extension and flexion were achieved in varus and valgus stability throughout range of motion were seen, balancing techniques were performed. At this point the attention was turned towards the patella. A caliper was used to ensure sufficient bone stock to remove 10 mm of bone. A reamer was used to perform this task. Lug holes were made for the appropriate-sized patella. The patella trial was inserted and there was good patellar tracking with knee range of motion. The tibial baseplate was allowed to float into rotation and was marked on the tibial plateau with a Bovie. Lug holes were made in the femur and trials were removed. The tibial baseplate was then sized and its preparation was completed with a fin punch. The knee was thoroughly irrigated. A posterior capsular injection was performed with our standard cocktail. The knee was brought into flexion and irrigated again. The tibial baseplate was cemented. Excess cement was removed with curettes. The polyethylene component was inserted. The femoral component was cemented. The knee was brought into full extension and placed on a bump. The patellar component was cemented. At this point a Betadine rinse was placed and thoroughly irrigated after a few minutes. This was followed by an Iricept rinse which was allowed to sit for 1 minute and then thoroughly irrigated.At this point all gloves were changed. The knee was thoroughly irrigated the joint capsule was closed with #1 Ethibond. Tourniquet was let down followed by 0 Vicryl and 2-0 Vicryl in the subcutaneous tissues. followed by sabas in the skin. Dressing was applied in the form of Mepilex silver dressing web roll and an Karl wrap from the foot to the groin. The patient tolerated the procedure well, all counts were correct patient was brought back to the PACU in stable condition.
--- NOTE | 2019-08-26 13:20 | RAD_ITS ---
STUDY: X-RAY - LEFT KNEE REASON FOR EXAM: Female, 69 years old. Post op TECHNIQUE: 2 view(s) of the knee. COMPARISON: April 28, 2019. FINDINGS: Status post total left knee arthroplasty. Post surgical changes throughout the soft tissues. No acute fracture or dislocation is identified. Alignment is anatomic. RAD/Knee 1 or 2 Views IMPRESSION: Status post total left knee arthroplasty. Electronically Signed: Adrian Holley, at 14:29 EST Tel , Service support ,
[2019-08-26] MEDS: Lactated Ringers 1,000 ML 125 ML IV ×2 (14:27→14:30)
--- NOTE | 2019-08-26 15:25 | NURSING ---
spoke w/ savage in [facility] and asked her to chart against pt meds on dec from this am for safety
[2019-08-26] MEDS: Cefazolin 1 GM/50 ML BAG IV ×2 (15:35→23:05)
--- NOTE | 2019-08-26 15:45 | NURSING ---
spoke w/ honorio in [facility] and they sent dose of cefazolin and it has been started
[2019-08-26] MEDS: Senna/Docusate Sodium 1 Tablet 2 TABLET PO (21:47)
[2019-08-27 03:00] VITALS: BP 122/56; PULSE 62; RESP 16; TEMP 36.8; O2SAT 95
[2019-08-27] MEDS: Ketorolac 15 MG/ML Vial IV (03:56)
[2019-08-27 06:05] LABS: Hematocrit 32.8 % (37-47); Hemoglobin 10.7 g/dL (12.0-15.0); Mean Corp Hgb Conc 32.6 g/dL (32-36); Mean Corpuscular Hgb 30.9 pg (27.0-32.0); Mean Corpuscular Volume 94.8 fL (81-99); Mean Platelet Vol. 8.7 fl (6.2-12.0); Platelet Count 256 K/mm3 (150-450); RBC Distribution Width CV 13.1 % (11.6-14.6); Red Blood Count 3.46 M/mm3 (4.2-5.4); White Blood Count 12.8 K/mm3 (4.4-11.0)
[2019-08-27 06:21] LABS: Anion Gap 5 (5-15); BUN 8 mg/dL (7-18); BUN/Creat Ratio 12.9 RATIO (10-20); Calcium,Total 8.2 mg/dL (8.5-10.1); Chloride 102 mmol/L (98-107); Creatinine, Serum 0.62 mg/dL (0.55-1.02); EST Glomerular Filtration Rate 101 mL/min (>60); Est Glom Filt Rate - Afr Amer 122 mL/min (>60); Estimated Creatinine Clearance 57.59 ml/min; Glucose 125 mg/dL (74-106); Sodium Level 136 mmol/L (136-145)
[2019-08-27] MEDS: APIXABAN 2.5 MG TABLET PO (06:34)
[2019-08-27] MEDS: Acetaminophen 500 MG Tablet 1000 MG PO ×2 (06:34→13:58)
[2019-08-27] MEDS: Cefazolin 1 GM/50 ML BAG IV (06:35)
[2019-08-27 08:11] VITALS: O2SAT 95
[2019-08-27] MEDS: Famotidine 20 MG Tablet PO (10:53)
[2019-08-27] MEDS: hydroCHLOROthiazide 12.5mg 12.5 MG PO (10:53)
[2019-08-27] MEDS: Losartan Potassium 50 MG Tablet PO (10:54)
[2019-08-27] MEDS: Multivitamins,Ther W-Minerals Tablet 1 TABLET PO (10:54)
[2019-08-27 10:59] VITALS: BP 120/53; PULSE 75; RESP 18; TEMP 36.6; O2SAT 98
--- NOTE | 2019-08-27 11:00 | CASEMGMT ---
GERMAN CARLISLE Face to Face with patient for initial transition planning/care coordination assessment. GERMAN CARLISLE introduced self and role at [facility]. Patient sitting in chair, alert and oriented. Patient willing to participate in assessment and is able to answer all questions appropriately. Care providers, pharmacy, and demographics verified. Patient wishes to discharge home and is setup for outpatient therapy at [facility] for tomorrow. Patient states she has no further needs or concerns at this time. CM to follow for discharge planning needs that may arise. PCP: Harsha Specialists: mitchell Graves Pharmacy: [facility] Insurance: [facility] Prescription Benefit: yes Living Will/HPOA: yes, Sakina Murphy daughter LNOK: daughters, son Living Arrangements: Patient lives alone in split level home. 4-5 steps with railing. Daughter will be staying with patient Transportation: daughter DME/HHC: Patient has shower chair, raised toilet, cane, crutches, and wheelchair. Patient will need walker at discharge. GERMAN CARLISLE provided patient with list for DME companies and patient prefers [employer]. Script received and referral sent to [employer], arranged for walker to be delivered prior to discharge. Disposition Plan: Patient to discharge home with outpatient therapy, family support, and follow-up plans in place. Josefina DE LEON, RN, CM
--- NOTE | 2019-08-27 11:46 | DCINST_ITS ---
Discharge Diet: No Restrictions Discharge Activity: Return to Normal Activity Weight Bearing Status: Weight bearing as tolerated Call your doctor if you observe: Fever of 101 or Higher, Shortness of breath, Chest pain, Increased palpitations (irregular heartbeat) Additional Instructions: Ice and elevate next week while not ambulating. Encourage ambulation weightbearing as tolerated. Encourage FULL knee extension and flexion 1 time EVERY time you get up and down and MULTIPLE times per day. Begin showering postop day #3. Remove the dressing prior to shower gently wash with warm water and antibacterial soap then pat dry place ABD pad and HAIDER hose over top. This is to be done daily. do not submerge for 3 weeks. If not showering daily must clean incision and change dressing daily. Do not allow animals near incision keep clean. Follow anticoagulation recommendations. Call Dr. Graves with any concerns. Allergies/Adverse Reactions: Allergies No Known Allergies Allergy (Verified 08/26/19 09:23) Medications to take at Discharge calcium phosphate-vitamin D3 250 mg calcium-500 unit chewable tablet 1 tab PO BID tab 07/30/19 cholecalciferol (vitamin D3) 1,000 unit capsule 1,000 unit PO BID 07/30/19 losartan 50 mg-hydrochlorothiazide 12.5 mg tablet 1 tab PO DAILY 07/30/19 rhdixyfu-err-jflgz acid 0.4 mg-lycopene 300 mcg-lutein 250 mcg tablet 1 tab PO DAILY 07/30/19 Acetaminophen [Tylenol] 1,000 mg PO Q6H PRN #100 tab 08/27/19 Apixaban [Eliquis] 2.5 mg PO BID #28 tab 08/27/19 Oxycodone [Oxyir] 5 - 10 mg PO Q4H PRN PRN #60 tablet 08/27/19 The following prescriptions were given: Apixaban [Eliquis] 2.5 mg PO BID #28 tab Transmission Status: Pending to [facility] Oxycodone [Oxyir] 5 - 10 mg PO Q4H PRN PRN #60 tablet PRN Reason: Pain Score 4-10/10 Transmission Status: Received by [facility] Acetaminophen [Tylenol] 1,000 mg PO Q6H PRN #100 tab Transmission Status: Pending to [facility] Primary Care Physician: Albert Mcleod Chi, MD [Primary Care Provider] - Test Results: Test results from this visit will be discussed in further detail at your follow- up appointment, if applicable. Please Follow Up With: Ollie Graves DO - 2 weeks
--- NOTE | 2019-08-27 11:47 | PCM.DC.SUM ---
Discharge Date and Diagnosis Date of Admission: 08/26/19 Date of Discharge: 08/27/19 Hospital Course and Treatment Summary of Care Provided: The patient is a 69 year old F the patient has with long-standing history of knee DJD and has failed conservative treatment. Patient wished to undergo elective total knee arthroplasty and underwent the aforementioned procedure on the admission date without complications. patient did receive pre-and postoperative antibiotics which were discontinued within 23 hours postoperatively. patient did receive [a spinal anesthesia and a adductor canal block ]and the pain was controlled postoperatively with p.o. and IV pain medication. There was minimal intraoperative blood loss he did [receive 2 g of tranexamic acid ]and his vital signs and labs were stable postoperatively and patient [did not require a blood transfusion]. patient was seen by physical therapy and did progress with his ambulation. Postoperatively was started on both mechanical and chemical DVT prophylaxis for which patient will continue [ Eliquis 2.5 mg twice daily] for 2 additional weeks post hospital discharge. Patient Karl wrap was removed in the morning of postop day 1 without any concerning signs. Silverlon dressing will stay on for 72 hours postoperatively at which time patient will begin showering on postop day #3 with daily dressing changes. Encouraged patient to achieve full range of motion as soon as possible, Patient will cart outpatient physical therapy and will follow-up in the office in 2 weeks for wound check. There is no intrahospital complications . Subjective: Pain controlled denies nausea vomiting shortness of breath chest pain ambulating well with PT - Physical Exam Vitals/I&O's: Vital Signs Temp Pulse Resp BP Pulse Ox 97.8 F 75 18 120/53 L 98 08/27/19 10:59 08/27/19 10:59 08/27/19 10:59 08/27/19 10:59 08/27/19 10:59 Oxygen Flow Rate (L/min) 6 Oxygen Delivery Method Room Air Weight: 155 lb 13.869 oz Body Mass Index (BMI) 31.4 Intake and Output for Last 24 Hours 08/25/19 08/26/19 08/27/19 23:59 23:59 23:59 Intake Total 2880 / 3230 1950 / 1950 Output Total 600 / 1050 975 / 975 Balance 2280 / 2180 975 / 975 General: Alert, Oriented x3, Cooperative, No apparent distress Extremities: - - Dressing clean dry and intact compartment soft neurovascular intact Laboratory Results 08/27/19 05:47: WBC 12.8 H, RBC 3.46 L, Hgb 10.7 L, Hct 32.8 L, MCV 94.8, MCH 30.9, MCHC 32.6, RDW Std Deviation 45.0 H, RDW Coeff of Chanelle 13.1, Plt Count 256, MPV 8.7 08/27/19 05:47: Sodium 136, Potassium 4.0, Chloride 102, Carbon Dioxide 29.0, Anion Gap 5, BUN 8, Creatinine 0.62, Estim Creat Clear Calc 57.59, Est GFR (MDRD) Af Amer 122, Est GFR (MDRD) Non-Af 101, BUN/Creatinine Ratio 12.9, Glucose 125 H, Calcium 8.2 L Current Medications Acetaminophen (Tylenol) 1,000 mg PO Q8 [facility] Last Admin: 08/27/19 06:34 Dose: 1,000 mg Documented by: Apixaban (Eliquis) 2.5 mg PO BID [facility] Last Admin: 08/27/19 06:34 Dose: 2.5 mg Documented by: Famotidine (Pepcid) 20 mg PO DAILY [facility] Last Admin: 08/27/19 10:53 Dose: 20 mg Documented by: Hydrochlorothiazide () 12.5 mg PO DAILY [facility] Last Admin: 08/27/19 10:53 Dose: 12.5 mg Documented by: Hydromorphone HCl (Dilaudid Inj) 0.5 mg IV Q2H PRN PRN PRN Reason: .BREAKTHROUGH PAIN (>4/10) Lactated Ringer's () 1,000 mls @ 125 mls/hr IV .Q8H [facility] Last Admin: 08/27/19 05:45 Dose: Not Given Documented by: Insulin Human Lispro (Humalog Kwikpen (Bkc)) 1 - 6 unit SC Q4H PRN PRN; Protocol PRN Reason: BG>/= 180, SEE PROTOCOL Ketorolac Tromethamine (Toradol) 15 mg IV Q6H PRN PRN PRN Reason: Pain Score 1-5/10 Stop: 08/28/19 12:47 Last Admin: 08/27/19 03:56 Dose: 15 mg Documented by: Losartan Potassium (Cozaar) 50 mg PO DAILY [facility] Last Admin: 08/27/19 10:54 Dose: 50 mg Documented by: Multivitamins/Minerals (Multivitamin With Minerals) 1 tablet PO DAILY@0800 [facility] Last Admin: 08/27/19 10:54 Dose: 1 tablet Documented by: Ondansetron HCl (Zofran) 4 mg IV Q6H PRN PRN PRN Reason: NAUSEA Oxycodone HCl (Oxyir) 5 - 10 mg PO Q4H PRN PRN PRN Reason: Pain Score 4-10/10 Senna/Docusate Sodium (Senokot-S, Isa-Colace) 2 tablet PO BID [facility] Last Admin: 08/27/19 10:54 Dose: Not Given Documented by: Sodium Chloride () 10 - 40 ml IV UD PRN PRN Reason: SALINE FLUSH Discharge Diet: No Restrictions Discharge Activity: Return to Normal Activity Weight Bearing Status: Weight bearing as tolerated Call your doctor if you observe: Fever of 101 or Higher, Shortness of breath, Chest pain, Increased palpitations (irregular heartbeat) Home Medications: Medications to take at Discharge calcium phosphate-vitamin D3 250 mg calcium-500 unit chewable tablet 1 tab PO BID tab 07/30/19 cholecalciferol (vitamin D3) 1,000 unit capsule 1,000 unit PO BID 07/30/19 losartan 50 mg-hydrochlorothiazide 12.5 mg tablet 1 tab PO DAILY 07/30/19 shnekjzj-zgf-bskrw acid 0.4 mg-lycopene 300 mcg-lutein 250 mcg tablet 1 tab PO DAILY 07/30/19 Acetaminophen [Tylenol] 1,000 mg PO Q6H PRN #100 tab 08/27/19 Apixaban [Eliquis] 2.5 mg PO BID #28 tab 08/27/19 Oxycodone [Oxyir] 5 - 10 mg PO Q4H PRN PRN #60 tablet 08/27/19 Following Prescrptions Were Given to Patient: Apixaban [Eliquis] 2.5 mg PO BID #28 tab Transmission Status: Pending to [facility] Oxycodone [Oxyir] 5 - 10 mg PO Q4H PRN PRN #60 tablet PRN Reason: Pain Score 4-10/10 Transmission Status: Received by [facility] Acetaminophen [Tylenol] 1,000 mg PO Q6H PRN #100 tab Transmission Status: Pending to [id number] Primary Care Physician: Albert Mcleod Chi, MD [Primary Care Provider] - Please Follow Up With: Ollie Graves DO - 2 weeks Additional Instructions: Ice and elevate next week while not ambulating. Encourage ambulation weightbearing as tolerated. Encourage FULL knee extension and flexion 1 time EVERY time you get up and down and MULTIPLE times per day. Begin showering postop day #3. Remove the dressing prior to shower gently wash with warm water and antibacterial soap then pat dry place ABD pad and HAIDER hose over top. This is to be done daily. do not submerge for 3 weeks. If not showering daily must clean incision and change dressing daily. Do not allow animals near incision keep clean. Follow anticoagulation recommendations. Call Dr. Graves with any concerns. Medical Necessity - Tobacco Use Tobacco Use: Non-smoker Meaningful Use Info Meaningful Use Diagnoses (Choose all that apply): None applicable
[2019-08-27 14:11] VITALS: BP 125/61; PULSE 73; RESP 18; TEMP 36.8; O2SAT 99
== END 2019-08-27 14:23 | disposition home or self-care (01) ==
LOC: MS3 14:36
PROVIDERS: Admitting Provider Orthopaedic Surgery; Family Provider Family Medicine Geriatric Medicine; PCP Family Medicine Geriatric Medicine; Referring Provider Orthopaedic Surgery; Visit Provider Orthopaedic Surgery
PROC: (CPT 27447; principal; 2019-08-26 10:40)
DX: M17.12 Unilateral primary osteoarthritis, left knee (principal); Z79.899 Other long term (current) drug therapy; I10 Essential (primary) hypertension
CPT/HCPCS: 27447; 64447; 36415; 73560; 80048; 82962; 85027; 87081; 93005; 94762; 96361; 96365; 96366; 96375; 97110; 97162; 97166; 97530; 99218; 99251; C1776; J7120; G0378; G0379; G0463; J0702; J3490

== ENCOUNTER 2019-10-30 11:30 | Outpatient (RCR) | payer MEDICARE, OTHER, SELFPAY ==
[2019-07-30 13:44] VITALS: BMI 30.4
[2019-08-26 14:57] VITALS: BMI 31.4
--- NOTE | 2019-08-28 12:27 | HP.PTEVAL_ITS ---
Patient's Visit Information MARYCRUZ GUTIERREZ is a 69 year old F referred to Physical Therapy by Ollie Graves DO with a diagnosis of L TKA. Date of Evaluation: 08/28/19 Physical Therapist: Rojelio Rivers, DPT, OCS, CSCS - Visit Plan Frequency: 3x /Week Duration: 4-6 Weeks Plan: 3x/week for 4-6 weeks for. patellar mobs and knee ROM, strength, gait, progression of function, swelling management. - Subjective Findings: L TKA two days ago. Prior it was causing her to fall and was painful. NO AD needed prior to surgery except for pain. Currently pain is up to 8/10 today as she was up and down allnight long above L knee. 0/10 at rest. Kept her up quite a bit last night with going to bathroom. HEP: AP, QS, HS, Hard for her to bend. Not employed retired. Has an acre adn a half yard and 4 bedroom house where she lives by herself marco split level. Has gone up them using R and railings. Dtr is staying with her currently. Dresses self on her own except shoes. Not currently cleaning or cooking as daughter is helping her. - Pain L knee Pain Intensity (Out of 10): 8 Pain Intensity Range: 0, 8 - Objective Walks with wh walker with stiff L knee. Trasnfer with UE on own. Bed transfer I. VC help her bend L knee better during swing. Mod I with wh walker 200 feet. R knee AROM 0-130, L knee -4 to 74 today. Patella stiff L vs R. Swelling is apparent and expected. Wound dressed approppriately , compression hose in place B. Ankles moving wella dn symmetrical without pain and 4+ strength, hips moving well and 4- strength. Knee strength 3 L in ext adn flexion. R is 4/5. Able to LAQ slowly. Able to SLR 10 degrees but ecc control is poor. Ext lag is about 15 degrees On L. Able to stand without walker but minimal WB L until cued. - Goals Goal 1:: 0-120 aROM without pain regularly. Goal Time Frame: 4-6 Weeks Goal 2:: SLR without lag Goal Time Frame: 2-4 Weeks Goal 3:: Walk without AD without gait deviation community distances. Goal Time Frame: 4-6 Weeks Goal 4:: Steps reciprocal without pain Goal Time Frame: 4-6 Weeks Goal 5:: I approp EHP and management Goal Time Frame: 4-6 Weeks - Rehabilitation Potential Physical Therapy Diagnosis: s/p L TKA 08/26/19 Rehabilitation Potential: Good - Anticipated Interventions Patient/Client Instruction: Educate patient on: Condition For the Purpose of:: To decrease pain, To increase ROM, To improve muscle performance and motor function, To improve ability of physical actions for home/community/work/leisure, To improve safety with gait Therapeutic Exercise to Include: Strength training, Flexibilty training, Gait and locomotor training, Passive ROM, Active ROM For the Purpose of:: To decrease pain, To increase ROM, To improve muscle performance and motor function, To increase tolerance to activity/condition/position, To improve ability of physical actions for home/community/work/leisure, To improve balance, To improve safety with gait Manual Therapy Techniques to Include: Mobilization For the Purpose of:: To increase ROM TENS: Yes Cryotherapy (ice pack, ice massage): Yes For the Purpose of:: To decrease pain Thank you for the opportunity to evaluate your patient. For Medicare and Medicare HMO plans, please review the plan of care and approve it. It will need to be FAXED BACK to us at [phone] for Medicare purposes. For Medicare only, by signing this I certify the plan of care. Please let me know if there are questions or concerns regarding this plan of care. Physician Signature: Date:
--- NOTE | 2019-09-26 09:50 | HP.PTREVAL ---
Ollie Graves, DO, It has been my pleasure to treat MARYCRUZ GUTIERREZ over the last 11 visits for L TKA. Please see the progress note below for an update on the physical therapy plan of care! Subjective: Back of Left leg started hurting sunday night. Knee feels stiff today. Knee today is 5/10 and tight today. To doctor 2 weeks. Sleep is interrupted slightly but not bad and more this week then last week. Using cane to get out and about but none needed at home. Doing all home activities with knee but vaccuming. Objective/Function: Walks well and safe without deviations today. Strength on steps is functional but ROM gives some circumduction with L ascending adn makes descending with L painful. -2 to 93 degrees L AROM. 101 degrees after stretching. Appropriate to continue with fair prognosis although progress may be slow due to limited ROM(according to patient) prior to surgery. Plan Plan: 2-3x/week for 2-3 weeks ...please change plan to. rollout quad and HS and gastroc, patellar mobs and PROM knee with ROM endrange felxion and ext ex to compliment. Goals Goal 1:: 0-120 aROM without pain regularly. Goal Time Frame: 4-6 Weeks Goal Progress: Progressing Goal 2:: SLR without lag Goal Time Frame: 2-4 Weeks Goal 3:: Walk without AD without gait deviation community distances. Goal Time Frame: 4-6 Weeks Goal Progress: Progressing Goal 4:: Steps reciprocal without pain Goal Time Frame: 4-6 Weeks Goal Progress: Progressing Goal 5:: I approp EHP and management Goal Time Frame: 4-6 Weeks Goal Progress: compliance? Anticipated Interventions Patient/Client Instruction: Educate patient on: Condition For the Purpose of:: To decrease pain, To increase ROM, To improve muscle performance and motor function, To improve ability of physical actions for home/community/work/leisure, To improve safety with gait Therapeutic Exercise to Include: Strength training, Flexibilty training, Gait and locomotor training, Passive ROM, Active ROM For the Purpose of:: To decrease pain, To increase ROM, To improve muscle performance and motor function, To increase tolerance to activity/condition/position, To improve ability of physical actions for home/community/work/leisure, To improve balance, To improve safety with gait Manual Therapy Techniques to Include: Mobilization For the Purpose of:: To increase ROM TENS: Yes Cryotherapy (ice pack, ice massage): Yes For the Purpose of:: To decrease pain Please do not hesitate to contact me at [phone] by phone or if you have questions or concerns regarding this new plan of care! Sincerely, Rojelio Rivers, DPT, OCS, CSCS
--- NOTE | 2019-10-14 14:13 | HP.PTREVAL ---
Ollie Graves, DO, It has been my pleasure to treat MARYCRUZ GUTIERREZ over the last 15 visits for L TKA. Please see the progress note below for an update on the physical therapy plan of care! Subjective: Rode bike without a problem today. Feels motion is better than it was. steps are easier. Walking more at home. Life is pretty normal at home activitiy [place]. achy body form shingles shot but knee only hurts at times in the evening 5/10 if raining or snowing. Sleep is OK. Saw doctor last Sunday and ordered 6 more weeks. 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 Objective/Function: walks without gait abnormalities today. Steps with one rail reciprocal but still some pain at end range L flexion descending. Weakness persists in testing L quad 4 and HS 4- vs R 4+. 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 Plan Plan: 2-3X/WEEK FOR 2-3 WEEKS TO: 1. eMPHASIZE GYM STRENGTH ON MACHINES AND NUSTEP TEACHING ADN WORK TO I AT THE END OF 5 VISITS WITH A LIST. 2. ENSURE ROM STILL IMPROVING IN FLEXION. GOOD PROGNOSIS. f/u as needed 3 weeks later then. Goals Goal 1:: 0-120 aROM without pain regularly. Goal Time Frame: 4-6 Weeks Goal Progress: Progressing, appropriate Goal 2:: SLR without lag Goal Time Frame: 2-4 Weeks Goal Progress: Goal Met Goal 3:: Walk without AD without gait deviation community distances. Goal Time Frame: 4-6 Weeks Goal Progress: Goal Met Goal 4:: Steps reciprocal without pain Goal Time Frame: 4-6 Weeks Goal Progress: Goal Met Goal 5:: I approp EHP and management Goal Time Frame: 4-6 Weeks Goal Progress: Goal Met Goal 6:: I approp gym based HEP for strength LE without increased pain. Goal Time Frame: 2-4 Weeks Goal Progress: NEW GOAL Anticipated Interventions Patient/Client Instruction: Educate patient on: Condition For the Purpose of:: To decrease pain, To increase ROM, To improve muscle performance and motor function, To improve ability of physical actions for home/community/work/leisure, To improve safety with gait Therapeutic Exercise to Include: Strength training, Flexibilty training, Gait and locomotor training, Passive ROM, Active ROM For the Purpose of:: To decrease pain, To increase ROM, To improve muscle performance and motor function, To increase tolerance to activity/condition/position, To improve ability of physical actions for home/community/work/leisure, To improve balance, To improve safety with gait Manual Therapy Techniques to Include: Mobilization For the Purpose of:: To increase ROM TENS: Yes Cryotherapy (ice pack, ice massage): Yes For the Purpose of:: To decrease pain Please do not hesitate to contact me at [phone] by phone or if you have questions or concerns regarding this new plan of care! Sincerely, Rojelio Rivers, DPT, OCS, CSCS
--- NOTE | 2019-10-30 12:16 | HP.PTDCSUM ---
HP - PT D/C Summary It has been my pleasure to treat MARYCRUZ GUTIERREZ under orders from Ollie Graves DO, for the diagnosis of L TKA for a total of 21 visit(s). Discharge Date: 10/30/19 Please see the following information for a summary of their discharge status. - Subjective Subjective: Stiff and sore but better after workout. Feels better after workout. 10/17. Can do workout in gym I. Cn't squat a lot at home but otherwise normal. Activities otherwise normal at home. No problem on steps - Pain L knee Pain Intensity (Out of 10): 0 - Overall Improvement % Improvement: 50 - Objective Objective/Function: 101 AROM L knee flexion and PROM to 108 limited by pain. Walking well without deviations. Steps reciprocal up and down, slight pain descending with L, needs one rail. Pt happy with progress and could not bend it very far for long time prior to surgery which is likely limting her flexion. - Goals Goal 1:: 0-120 aROM without pain regularly. Goal Progress: stiff Goal 2:: SLR without lag Goal Progress: Goal Met Goal 3:: Walk without AD without gait deviation community distances. Goal Progress: Goal Met Goal 4:: Steps reciprocal without pain Goal Progress: Goal Met Goal 5:: I approp EHP and management Goal Progress: Goal Met Goal 6:: I approp gym based HEP for strength LE without increased pain. Goal Progress: Goal Met - Plan Plan: d/c, to f/u wi doctor in 3 weeks. - D/C Information Discharge Comments: Pt doing well adn I with ex, very functional. Still stiff into flexion expectedly for her history. Will f/u with docotr in 3 weeks and continue HEP and gym ex prior. If there are questions or concerns regarding this patient's physical therapy, please feel free to call me at [phone]. Thank you for the referral of this patient. Sincerely, Rojelio Rivers, DPT, OCS, CSCS
== END 2019-10-30 19:00 | disposition home or self-care (01) ==
LOC: PT 11:30
PROVIDERS: Family Provider Family Medicine Geriatric Medicine; PCP Family Medicine Geriatric Medicine; Visit Provider Orthopaedic Surgery
DX: Z96.652 Presence of left artificial knee joint (principal)
CPT/HCPCS: 97110; 97162; 97164; 97530

== ENCOUNTER → 2019-11-10 11:13 | Outpatient (CLI) | payer MEDICARE, OTHER, SELFPAY ==
[2019-10-10 10:42] VITALS: BMI 31.4
[2019-11-10 12:27] LABS: Absolute Lymphocyte Count 1.65 X10^3/uL (0.83-4.51); Absolute Neutrophil Count 2.8 X10^3/uL (2.0-7.7); Basophil# 0.02 X10^3/uL; Basophil% 0.4 % (0-1); Eosinophil# 0.09 X10^3/uL; Eosinophils% 1.8 % (0-5); Hematocrit 39.7 % (37-47); Hemoglobin 12.7 g/dL (12.0-15.0); Lymphocyte # 1.65 X10^3/ul (4.0); Lymphocyte % 32.4 % (19-41); Mean Corpuscular Hgb 29.5 pg (27.0-32.0); Mean Corpuscular Volume 92.1 fL (81-99); Monocyte# 0.47 X10^3/uL; Monocyte% 9.2 % (0-10); NRBC Flagged by Analyzer 0 % (0-5); Neutrophil # 2.82 X10^3/uL (2.7-7.7); Neutrophil % 55.4 % (47-70); Platelet Count 320 K/mm3 (150-450); RBC Distribution Width CV 13.2 % (11.6-14.6); RBC Distribution Width SD 44.9 fl (35.1-43.9); Red Blood Count 4.31 M/mm3 (4.2-5.4); White Blood Count 5.1 K/mm3 (4.4-11.0)
[2019-11-10 12:43] LABS: Vitamin D,25 Hydroxy 30.6 ng/mL (29.95-100.01)
[2019-11-10 12:51] LABS: Anion Gap 6 (5-15); BUN 12 mg/dL (7-18); BUN/Creat Ratio 18.9 RATIO (10-20); Calcium,Total 9.8 mg/dL (8.5-10.1); Chloride 98 mmol/L (98-107); Creatinine, Serum 0.64 mg/dL (0.55-1.02); EST Glomerular Filtration Rate 98 mL/min (>60); Est Glom Filt Rate - Afr Amer 119 mL/min (>60); Glucose 98 mg/dL (74-106); Potassium 3.8 mmol/L (3.5-5.1); Sodium Level 134 mmol/L (136-145); Thyroid Stim Hormone (TSH) 1.06 uIU/mL (0.358-3.74)
== END ==
PROVIDERS: PCP Family Medicine; Visit Provider Family Medicine
DX: E55.9 Vitamin D deficiency, unspecified (principal); I10 Essential (primary) hypertension; M85.80 Other specified disorders of bone density and structure, unspecified site
CPT/HCPCS: 36415; 80048; 82306; 84443; 85025

== ENCOUNTER → 2019-11-21 10:59 | Outpatient (CLI) | payer MEDICARE, OTHER, SELFPAY ==
[2019-11-21 10:50] VITALS: BMI 31.4
--- NOTE | 2019-11-21 11:00 | RAD_ITS ---
STUDY: X-RAY - LEFT KNEE REASON FOR EXAM: Female, 69 years old. POST OP TECHNIQUE: 4 view(s) of the knee. COMPARISON: August 26, 2019. FINDINGS: There is demineralization of the visualized distal femur. There is demineralization of the tibia and fibula. Normal proximal tibiofibular articulation. There is left knee replacement. Alignment is near anatomic. The soft tissue structures are unremarkable. RAD/Knee 4 or More Views IMPRESSION: Left knee replacement. Electronically Signed: Roscoe Dove MD at 15:59 EST , Service support ,
== END ==
PROVIDERS: PCP Family Medicine; Referring Provider Orthopaedic Surgery; Visit Provider Orthopaedic Surgery
DX: Z47.89 Encounter for other orthopedic aftercare (principal)
CPT/HCPCS: 73564

== ENCOUNTER → 2020-07-01 16:23 | Outpatient (CLI) | payer MEDICARE, OTHER, SELFPAY ==
[2019-11-21 10:50] VITALS: BMI 31.4
--- NOTE | 2020-07-01 16:25 | BI_ITS ---
MAMMOGRAPHY - BILATERAL SCREENING REASON FOR EXAM: Female, 70 years old. Routine annual screening examination. PERTINENT HISTORY: Mother with breast cancer. Aunt with breast cancer. TECHNIQUE: Digital bilateral breast cortez (3D mammographic acquisition) in the CC and MLO projections. 2-D mediolateral oblique (MLO) and craniocaudad (CC) views of both breasts were obtained. CAD: Full Field Digital Mammography with Computer Added Detection was performed. COMPARISON: Comparison is made with prior study dated 06/30/2019 and 06/29/2018. FINDINGS: Breast Composition: There are scattered areas of fibroglandular density. There are no dominant masses or suspicious calcifications. Stable benign-appearing calcifications in the deep slightly lateral portion of the right breast No other significant abnormalities are identified. There has been no significant change since the prior study. BI/SCREEN MAMM (CAD) W/CORTEZ BILAT IMPRESSION: Stable bilateral screening mammogram. Yearly follow-up mammogram recommended. (A) ASSESSMENT CATEGORY: BIRADS Category 2: Benign. A letter regarding these results will be sent to the patient by the facility within 30 days. Approximately 10% of breast cancers are not detected by mammography. A normal mammogram should not delay biopsy of a clinically suspicious abnormality. [id number] Electronically Signed: Julio Ta, at 8:17 EDT , Service support ,
== END ==
PROVIDERS: PCP Family Medicine; Referring Provider Family Medicine; Visit Provider Family Medicine
DX: Z12.31 Encounter for screening mammogram for malignant neoplasm of breast (principal)
CPT/HCPCS: 77063; 77067

== ENCOUNTER 2020-09-21 07:21 | Day surgery (SDC) | payer MEDICARE, OTHER, SELFPAY ==
[2019-11-21 10:50] VITALS: BMI 31.4
--- NOTE | 2020-09-10 09:31 | EKG12_ITS ---
Test Reason : PREOP Blood Pressure : / mmHG Vent. Rate : 079 BPM Atrial Rate : 079 BPM P-R Int : 158 ms QRS Dur : 072 ms QT Int : 366 ms P-R-T Axes : 049 -35 042 degrees QTc Int : 419 ms Normal sinus rhythm Left axis deviation Anterolateral infarct (cited on or before 12-AUG-2019) Abnormal ECG Confirmed by MADIHA WHARTON, MIKE ([id number]), film editor supervisor MASHA MEDRANO ([id number]) on 09/13/2020 1:39:12 PM Referred By: Ollie Graves Confirmed By:MIKE CLEARY MD
[2020-09-10 10:52] LABS: Absolute Lymphocyte Count 1.68 X10^3/uL (0.83-4.51); Absolute Neutrophil Count 2.8 X10^3/uL (2.0-7.7); Basophil# 0.03 X10^3/uL; Basophil% 0.6 % (0-1); Hematocrit 41.3 % (37-47); Hemoglobin 13.2 g/dL (12.0-15.0); Lymphocyte # 1.68 X10^3/ul (4.0); Lymphocyte % 32.8 % (19-41); Mean Corpuscular Hgb 29.9 pg (27.0-32.0); Mean Corpuscular Volume 93.7 fL (81-99); Mean Platelet Vol. 8.8 fl (6.2-12.0); Monocyte# 0.47 X10^3/uL; Monocyte% 9.2 % (0-10); NRBC Flagged by Analyzer 0 % (0-5); Neutrophil # 2.83 X10^3/uL (2.7-7.7); Neutrophil % 55.2 % (47-70); Platelet Count 343 K/mm3 (150-450); RBC Distribution Width CV 12.8 % (11.6-14.6); RBC Distribution Width SD 43.9 fl (35.1-43.9); Red Blood Count 4.41 M/mm3 (4.2-5.4); White Blood Count 5.1 K/mm3 (4.4-11.0)
[2020-09-10 10:59] LABS: Magnesium 2.2 mg/dL (1.6-2.6)
[2020-09-10 11:00] LABS: Anion Gap 4 (5-15); BUN 12 mg/dL (7-18); BUN/Creat Ratio 17.6 RATIO (10-20); Calcium,Total 9.4 mg/dL (8.5-10.1); Chloride 100 mmol/L (98-107); Creatinine, Serum 0.68 mg/dL (0.55-1.02); EST Glomerular Filtration Rate 90 mL/min (>60); Est Glom Filt Rate - Afr Amer 109 mL/min (>60); Glucose 93 mg/dL (74-106); Potassium 3.6 mmol/L (3.5-5.1); Sodium Level 136 mmol/L (136-145)
[2020-09-10 11:18] LABS: Prothrombin Time (Protime)PT. 12.7 SECONDS (11.7-14.9)
[2020-09-21] VITALS (10 sets, daily range): BP systolic 111–130; BP diastolic 51–86; PULSE 72–89; RESP 14–18; TEMP 35.9–37; O2SAT 95–100; BMI 29.5
[2020-09-21 08:05] LABS: Bedside Glucose 95 mg/dL (70-110)
[2020-09-21] MEDS: Celecoxib 200 MG Capsule 400 MG PO (08:21)
[2020-09-21] MEDS: Gabapentin 600 MG Tablet PO (08:22)
[2020-09-21] MEDS: Scopolamine 1mg/72hr Patch 1 PATCH TD (08:22)
[2020-09-21] MEDS: Acetaminophen 500 MG Tablet 1000 MG PO ×2 (08:22→16:20)
[2020-09-21] MEDS: Lactated Ringers 1,000 ML 999 ML IV (08:23)
--- NOTE | 2020-09-21 09:39 | HP.PCM_ITS ---
History and Physical Date of Admission: 09/21/20 Intake Intake Visit Reasons: LEFT KNEE Chief Complaint: LTK Accompanied by: Self Is patient in pain?: No Allergies No Known Allergies Allergy (Verified 08/30/20 08:57) Medications calcium phosphate 250 mg-vit D3 12.5 mcg (500 unit) chewable tablet 1 tab PO BID tab 07/30/19 [History Confirmed 08/30/20] ynyvbipn-ymd-imdlz acid 0.4 mg-lycopene 300 mcg-lutein 250 mcg tablet 1 tab PO DAILY 07/30/19 [History Confirmed 08/30/20] Acetaminophen [Tylenol] 1,000 mg PO Q6H PRN #100 tab 08/27/19 [Rx Confirmed 08/30/20] cholecalciferol (vitamin D3) 25 mcg (1,000 unit) capsule 3,000 unit PO DAILY cap 08/30/20 [History Confirmed 08/30/20] hydrochlorothiazide 12.5 mg tablet 12.5 mg PO DAILY 08/30/20 [History Confirmed 08/30/20] losartan 50 mg tablet 50 mg PO DAILY 08/30/20 [History Confirmed 08/30/20] nxnkgucb-jtjywa-pbh-oud-xtp-xrzb-horse 100 mg-100 mg-100 mg-125 mg tab 1 tab PO DAILY tab 08/30/20 [History] [facility] Medical History (Updated 08/25/19 @ 13:[address] Ollie Graves DO) Hypertension (Chronic) HPI LEFT KNEE: Chief Complaint: 1 year follow-up left total And ongoing right knee pain Details: Parts of this documentation were recorded by a scribe, this documentation accurately reflects the service provided and the decisions made by me, Dr. Ollie Graves DO 08/30/20 0758. MARYCRUZ GUTIERREZ is a 70 year old F here today for one year follow up after having left TKA. DOS: 08/26/2019. Patient denies pain and discomfort with her left knee. Denies numbness, and tingling. She is satisfied with her knee and is able to do everything she wants to do functionally with it. She has had ongoing right knee pain for over a year and would like to discuss treatment options. She has not had any injections or formal treatment of the knee. Right knee pain is mostly anterior medial and lateral no mechanical symptoms ROS Musc Denies system reviewed and no additional complaints, except as docu, Denies joint pain, Denies joint swelling, Denies numbness, Denies stiffness, Denies tingling Skin/Breast Denies system reviewed and no additional complaints, except as docu, Denies dry skin, Denies redness, Denies lesions, Denies new lesions, Denies non-healing lesions, Denies itching, Denies rash, Denies skin ulcer, Denies sores, Denies unusual bruising, Denies wounds Neuro No numbness, No tingling Ortho Exam General General: Yes no acute distress Neurologic: Yes alert Psychologic: Yes reasonable and appropriate Right Knee Skin/Wound: No erythema, No ecchymosis, No swelling Knee ROM: Yes ROM-Extension -20 to 0 (lack 3 degrees), Yes ROM-Flexion 0-140 (118) Examination: Yes Med jt line tenderness, Yes Lat jt line tenderness, Yes Neida's Test (medial and lateral) Stability: NML: Woo, NML: Posterior Drawer, NML: Valgus 0, NML: Valgus 30, NML: Varus 0, NML: Varus 30 Patella Translation: 1 Patella Grind: Yes Left Knee Date of Surgery: 08/26/19 Knee ROM: Yes ROM-Extension -20 to 0, Yes ROM-Flexion 0-140 (108) Patella Translation: 1 Supplemental Info 08/30/2020 x-ray right knee moderate medial joint space narrowing mild spurring lateral compartment moderate spurring patellofemoral joint Assessment & Plan Problems 1. Orthopedic aftercare Z47.89 Plan Obtained X-rays of patient's bilateral knees. Personally reviewed X-rays. There is no obvious fracture, dislocation, or lucency noted. See chart for further details. 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 Patient would like to go ahead and proceed with scheduling surgery. Patient would like to bypass the Iovera injection. Patient did not have Casa on her left knee and we will proceed without the Casa on the right as this was discussed with her. Risks, benefits and alternatives of surgery reviewed including but not limited to bleeding, infection, nerve, artery and/or tissue damage, fracture, VTE, mechanical feel of the knee, continued pain, stiffness and expected post- operative course. All questions answered. Patient in agreement of plan. Orders Orders: Knee 4 or More Views Today Z47.89 Knee 4 or More Views Today M25.561 Coding Level of Care Code Off vis,est,level 3 Diagnoses Orthopedic aftercare Z47.89 I have re-examined the patient. There are no clinical changes since date of exam Procedure Criteria Procedure Type: Elective COVID Risk Discussion: The surgeon/proceduralist and patient have discussed in detail the risk of exposure to and/or potential harm posed by the COVID-19 virus with having a surgery/procedure at this time versus the risk of delaying the surgery/procedure. It is not possible to know either the risk of delaying the surgery or procedure or chance of getting an infection with perfect accuracy, but a joint decision was made between the patient and the surgeon/proceduralist to proceed at this time with the scheduled surgery/procedure as indicated on the consent form.
[2020-09-21] MEDS: Lactated Ringers 1,000 ML 125 ML IV ×2 (09:46→13:21)
[2020-09-21] MEDS: Cefazolin 2 GM in 0.9% Normal Saline 100 ML IV (10:28)
[2020-09-21] MEDS: dexAMETHasone 10 MG/ML Vial IV (10:38)
[2020-09-21] MEDS: 0.9% Normal Saline (Pres. free 10 ML Vial (11:50)
[2020-09-21] MEDS: Betamethasone/Betamethasone 30 MG/5 ML Vial (11:50)
[2020-09-21] MEDS: Bupivacaine 0.5% PF 10 ML VIAL (11:50)
[2020-09-21] MEDS: Epinephrine (1 mg/ml) 1 MG/ML VIAL (11:50)
--- NOTE | 2020-09-21 12:39 | DCINST_ITS ---
Discharge Diet: No Restrictions Weight Bearing Status: Weight bearing as tolerated Keep extremity elevated above heart level: Operative Extremity Call your doctor if you observe: Shortness of breath, Chest pain Additional Instructions: Ice and elevate one week while not ambulating. Ambulation is encouraged. Weightbearing as tolerated. Use assistive devise for stability. Encourage FULL knee extension and flexion 1 time EVERY time you get up and down and MULTIPLE times per day. No showering 72 hours after surgery. Begin showering postop day #3. Remove the dressing prior to shower and gently wash with warm water and antibacterial soap then pat dry and place abdominal pad (or plain gauze) and HAIDER hose over top. This is to be done daily. Do not submerge for 3 weeks. If not showering daily after the initial 72 hours then you must clean incision and change dressing daily. Do not allow animals near the incision area. Keep clean. Follow anticoagulation recommendations as prescribed. Do not take any NSAIDs while on blood thinner. Do not take any additional narcotic pain medication other than what was prescribed on you surgery day without discussing with physician. Start physical therapy. If you are not currently scheduled for physical therapy or you are unsure of appointment time please call office [facility] to arrange. Call Dr. Graves with any concerns. Allergies/Adverse Reactions: Allergies No Known Allergies Allergy (Verified 09/07/20 08:03) Medications to take at Discharge calcium phosphate 250 mg-vit D3 12.5 mcg (500 unit) chewable tablet 1 tab PO DAILY tab 07/30/19 xtlfcmzn-bwh-cmxfd acid 0.4 mg-lycopene 300 mcg-lutein 250 mcg tablet 1 tab PO DAILY 07/30/19 Acetaminophen [Tylenol] 1,000 mg PO Q6H PRN #100 tab 08/27/19 cholecalciferol (vitamin D3) 25 mcg (1,000 unit) capsule 3,000 unit PO DAILY cap 08/30/20 hydrochlorothiazide 12.5 mg tablet 12.5 mg PO DAILY 08/30/20 losartan 50 mg tablet 50 mg PO DAILY 08/30/20 xrwreprs-wqkuxo-kke-hqc-ygi-wkhc-horse 100 mg-100 mg-100 mg-125 mg tab 1 tab PO DAILY tab 08/30/20 Acetaminophen [Tylenol Extra Strength] 1,000 mg PO Q6H PRN #100 tab 09/21/20 Apixaban [Eliquis] 2.5 mg PO BID #30 tab 09/21/20 Cephalexin [Keflex] 1,000 mg PO Q8 #4 cap 09/21/20 Ondansetron HCl [Zofran] 4 mg PO Q6H PRN PRN 5 Days #15 tab 09/21/20 Ondansetron HCl [Zofran] 4 mg PO Q6H PRN PRN 5 Days #15 tab 09/21/20 Oxycodone [Oxyir] 5 mg PO Q4H PRN PRN #60 tablet 09/21/20 The following prescriptions were given: Apixaban [Eliquis] 2.5 mg PO BID #30 tab Transmission Status: Pending to [facility] Cephalexin [Keflex] 1,000 mg PO Q8 #4 cap Transmission Status: Pending to [facility] Oxycodone [Oxyir] 5 mg PO Q4H PRN PRN #60 tablet PRN Reason: Pain Score 6-10 Transmission Status: Sent to [facility] Acetaminophen [Tylenol Extra Strength] 1,000 mg PO Q6H PRN #100 tab Transmission Status: Pending to [facility] Ondansetron HCl [Zofran] 4 mg PO Q6H PRN PRN 5 Days #15 tab PRN Reason: Nausea Transmission Status: Pending to [facility] Ondansetron HCl [Zofran] 4 mg PO Q6H PRN PRN 5 Days #15 tab PRN Reason: Nausea Transmission Status: Pending to [facility] Primary Care Physician: Simeon Flores MD [Primary Care Provider] - Test Results: Test results from this visit will be discussed in further detail at your follow- up appointment, if applicable. Please Follow Up With: Ollie Graves DO - 2 weeks
--- NOTE | 2020-09-21 12:40 | OP.PCM_ITS ---
Report of Operation Date of Procedure: 09/21/20 Description of Surgical Findings:: Preoperative diagnosis: Right knee DJD Postoperative diagnosis: Same Procedure: Right total knee arthroplasty Implant: [place] [employer] cemented femoral component size3, cemented tibial baseplate size 3, cemented asymmetric patella size 32, polyethylene X3 size 9 CS Anesthesia: Spinal with adductor canal block Complications: None Condition: Stable to PACU Estimated blood loss: 25 cc Indication for procedure: This is a 70-year-old female with long standing degenerative joint disease of the knee who has failed conservative treatment and wished to proceed with elective total knee arthroplasty. Risk benefits and alternatives were reviewed including; risk of bleeding, infection, nerve artery and tissue damage, continued pain, postoperative stiffness, venous thromboembolism, need for postoperative rehabilitation, mechanical feel to the knee, and expected postoperative course. Procedure: The patient was met in the preoperative holding area. The operative extremity was identified by both patient and physician and was marked. Patient was met by anesthesia. An adductor canal block was placed by anesthesia postoperatively the patient was brought back to the operating room on a wheeled cart and transferred to the operating table in the supine position. Anesthesia was started. A well-padded tourniquet was placed on the operative extremity. The patient was prepped and draped in the usual sterile fashion. A timeout was called to ensure the proper patient procedure and extremity were being contemplated. An Esmarch was used to exsanguinate the extremity. The tourniquet was inflated. A 10 blade scalpel was used to make a midline incision down through the skin and subcutaneous tissue. Skin retractors placed. Bovie was used to perform meticulous hemostasis. full-thickness flaps were elevated medial and lateral along the joint capsule. A deep blade scalpel was used to perform a medial parapatellar arthrotomy. The knee was brought to full extension. A Bovie was used to release the soft tissues off the most proximal aspect of the medial tibial plateau a three-quarter inch curved osteotome was also used for this process. The infrapatellar fat pad was excised. The fat pad was excised partially anterior lateral portion the anterior medial was elevated from the femur. the patella was everted. The knee was brought into flexion. An intramedullary drill was used followed by flexible intramedullary guide td. The distal femoral cutting block was placed and set to remove 10 mm of bone and 5 degrees of valgus. The block was secured with pins and an oscillating saw was used to complete the distal femoral cut. During this, and all bony cuts retractors were used to protect the collateral ligaments. At this point a femoral sizer was used to measure the AP dimension of the femur. The sizer b lock was pinned parallel to the epicondylar access for external rotation. The sizing block was removed and the appropriately sized 4-in-1 cutting block was placed over the previously made pinholes. It was checked with an mulu wing and the block was secured with pins. An oscillating saw was used to complete the anterior cut followed by the posterior cut followed by the posterior chamfer cut followed by the anterior chamfer cut. The block was removed as well as the fragments. A ronguer was used to remove excess osteophytes. The medial and lateral meniscus were excised as well as the ACL. At this point a PCL retractor was placed and an intramedullary drill was passed down the tibial canal followed by a solid intramedullary guide td. The tibial cutting block was attached and set to remove 9 mm of bone from the high side. This was checked with an external alignment drop td for slope and tilt. It was pinned into place. An oscillating saw was used to complete the tibial plateau cut and the block was removed. A large osteotome was used to elevate the fragment and a Priscilla and a Bovie were used to free the fragment from the surrounding soft tissue. A rongeur was once again used to remove osteophytes a lamina immigration services officer was used to evaluate the posterior capsular structures. A three-quarter inch curved osteotome was used to remove posterior osteophytes. A spacer block was inserted in both extension and flexion to ensure adequate spacing. Trials were inserted full extension and flexion were achieved in varus and valgus stability throughout range of motion were seen, balancing techniques were performed. At this point the attention was turned towards the patella. A caliper was used to ensure sufficient bone stock to remove 10 mm of bone. A reamer was used to perf orm this task. Lug holes were made for the appropriate-sized patella. The patella trial was inserted and there was good patellar tracking with knee range of motion. The tibial baseplate was allowed to float into rotation and was marked on the tibial plateau with a Bovie. Lug holes were made in the femur and trials were removed. The tibial baseplate was then sized and its preparation was completed with a fin punch. The knee was thoroughly irrigated. A posterior capsular injection was performed with our standard cocktail. The knee was brought into flexion and irrigated again. The tibial baseplate was cemented. Excess cement was removed with curettes. The polyethylene component was inserted. The femoral component was cemented. The knee was brought into full extension and placed on a bump. The patellar component was cemented. At this point a Betadine rinse was placed and thoroughly irrigated after a few minutes. This was followed by an Iricept rinse which was allowed to sit for 1 minute and then thoroughly irrigated.At this point all gloves were changed. The knee was thoroughly irrigated the joint capsule was closed with #1 Ethibond. Tourniquet was let down followed by 0 Vicryl and 2-0 Vicryl in the subcutaneous tissues. followed by sabas in the skin. Dressing was applied in the form of Mepilex silver dressing web roll and an Karl wrap from the foot to the groin. The patient tolerated the procedure well, all counts were correct patient was brought back to the PACU in stable condition.
--- NOTE | 2020-09-21 12:52 | RAD_ITS ---
STUDY: X-RAY - RIGHT KNEE REASON FOR EXAM: Female, 70 years old. POST OP RIGHT KNEE TECHNIQUE: 2 view(s) of the knee. COMPARISON: Comparison is made with prior study dated 08/30/2020. FINDINGS: The patient is status post total knee replacement. Postoperative soft tissue swelling. RAD/Knee 1 or 2 Views IMPRESSION: Status post right total knee replacement. There is good alignment. Postoperative soft tissue changes. Electronically Signed: Julio Ta, at 13:31 EST , Service support ,
[2020-09-21] MEDS: Cefazolin 1 GM/50 ML BAG IV (13:20)
== END 2020-09-21 16:37 | disposition home or self-care (01) ==
LOC: SDC 07:21 → AC 07:22 → MS3 08:18
PROVIDERS: Anesthesiology; PCP Family Medicine; Referring Provider Orthopaedic Surgery; Visit Provider Orthopaedic Surgery
PROC: (CPT 27447; principal; 2020-09-21 09:55)
DX: M17.11 Unilateral primary osteoarthritis, right knee (principal); Z20.828 Contact with and (suspected) exposure to other viral communicable diseases; I10 Essential (primary) hypertension; Z78.0 Asymptomatic menopausal state; Z79.899 Other long term (current) drug therapy
CPT/HCPCS: 01402; 27447; 36415; 73560; 80048; 82962; 83735; 85025; 85610; 85730; 86850; 86900; 86901; 87081; 87426; 93005; 97162; C1776; C9803; J7120; J0702; J2405; J3490

== ENCOUNTER → 2020-11-19 10:12 | Outpatient (CLI) | payer MEDICARE, OTHER, SELFPAY ==
[2020-11-19 12:16] LABS: Absolute Lymphocyte Count 1.17 X10^3/uL (0.83-4.51); Absolute Neutrophil Count 2.4 X10^3/uL (2.0-7.7); Basophil# 0.02 X10^3/uL; Basophil% 0.5 % (0-1); Eosinophil# 0.08 X10^3/uL; Hematocrit 39.5 % (37-47); Hemoglobin 12.7 g/dL (12.0-15.0); Lymphocyte # 1.17 X10^3/ul (4.0); Mean Corp Hgb Conc 32.2 g/dL (32-36); Mean Corpuscular Hgb 29.8 pg (27.0-32.0); Mean Corpuscular Volume 92.7 fL (81-99); Mean Platelet Vol. 8.7 fl (6.2-12.0); Monocyte# 0.32 X10^3/uL; Monocyte% 7.9 % (0-10); NRBC Flagged by Analyzer 0 % (0-5); Neutrophil # 2.44 X10^3/uL (2.7-7.7); Neutrophil % 60.4 % (47-70); Platelet Count 356 K/mm3 (150-450); RBC Distribution Width SD 44.1 fl (35.1-43.9); Red Blood Count 4.26 M/mm3 (4.2-5.4)
[2020-11-19 12:43] LABS: ALB/GLOB Ratio 1.2 RATIO (0.9-2.4); AST(SGOT) 12 U/L (15-37); Alanine Aminotransfer ALT/SGPT 23 U/L (13-56); Alkaline Phosphatase 72 U/L (45-117); Anion Gap 5 (5-15); BUN 11 mg/dL (7-18); BUN/Creat Ratio 17.1 RATIO (10-20); Calcium,Total 9.3 mg/dL (8.5-10.1); Chloride 101 mmol/L (98-107); Cholesterol 229 mg/dL (200); Creatinine, Serum 0.64 mg/dL (0.55-1.02); EST Glomerular Filtration Rate 96 mL/min (>60); Est Glom Filt Rate - Afr Amer 117 mL/min (>60); Globulin 3.3 g/dL (2.2-4.2); Glucose 104 mg/dL (74-106); High Density Lipoprotein 70 mg/dL; Potassium 3.9 mmol/L (3.5-5.1); Protein, Total 7.3 g/dL (6.4-8.2); Sodium Level 135 mmol/L (136-145); Thyroid Stim Hormone (TSH) 0.74 uIU/mL (0.358-3.74); Triglycerides 147 mg/dL; Very Low Density Lipoprotein 29 mg/dL (5-40)
== END ==
PROVIDERS: PCP Family Medicine; Visit Provider Family Medicine
DX: I10 Essential (primary) hypertension (principal); E55.9 Vitamin D deficiency, unspecified; M85.80 Other specified disorders of bone density and structure, unspecified site
CPT/HCPCS: 36415; 80053; 80061; 82306; 84443; 85025

== ENCOUNTER 2020-12-10 10:30 | Outpatient (RCR) | payer MEDICARE, OTHER, SELFPAY ==
[2020-09-21 08:15] VITALS: BMI 29.5
--- NOTE | 2020-09-23 13:43 | HP.PTEVAL ---
Patient's Visit Information MARYCRUZ GUTIERREZ is a 70 year old F referred to Physical Therapy by Dr. Ollie Graves DO with a diagnosis of R TKA 09/21/20. Date of Evaluation: 09/23/20 Physical Therapist: Dionisio John, PT, ATC - Visit Plan Frequency: 2-3x /Week Duration: 4-6 Weeks Plan: R knee PROM/mobs, stretching and strengthening, balance and proprio, gait training, nustep, and HEP - Subjective DOS: 09/21/20. Pt reports her R knee had severe degenerative changes in it prior to having R TKA. Pt reports she is still in a lot of pain, but notes she is glad to have had the surgery because she doesnt have a stabbing pain now that used to occur every night. Pt notes no tingling or numbness in R LE. Pt reports no sleep difficutly secondary to pain. Pt notes she is currently retired. Pt reports she lives in a split level and can negotiate stairs one step at a time. Pt reports her goal is to feel better again so she can get back to gardening next spring. 0/10 pain at rest, 9.5/10 at worst (with movement) - Pain R knee Pain Intensity (Out of 10): 0 Pain Intensity Range: 9 - Objective Neuro: B LE sensation is WNL to light touch. B achilles reflex= 1/3. Observation: Incision is still covered. Minor discoloration noted. Moderate swelling today. No obvious signs of infection. Girth at joint line: L knee 36.5 cm, R knee 45 cm. ROM: L knee 0-105 degrees, L knee 0-15-92 degrees. MMT: L knee is grossly 4+/5, R knee is 3/5 and painful. - Goals Goal 1:: Decrease R knee pain x 50% to aid with ambulation Goal Time Frame: 4-6 Weeks Goal 2:: Increase R knee strength x 1 grade to aid with stair negotiation Goal Time Frame: 4-6 Weeks Goal 3:: Increase R knee ROM x 20 degrees to aid with restoring a normalized gait pattern Goal Time Frame: 4-6 Weeks Goal 4:: I with HEP Goal Time Frame: 4-6 Weeks - Rehabilitation Potential Physical Therapy Diagnosis: Pt has R knee pain, weakness,a nd limited ROM secondary to L TKA Rehabilitation Potential: Good - Anticipated Interventions Patient/Client Instruction: Educate patient on: Condition, Plan of Care For the Purpose of:: To improve self management Therapeutic Exercise to Include: Strength training, Endurance training, Balance training, Flexibilty training, Gait and locomotor training, Passive ROM, Active ROM, Dynamic Lumbar Stabilization For the Purpose of:: To decrease pain, To increase ROM, To improve muscle performance and motor function Thank you for the opportunity to evaluate your patient. For Medicare and Medicare HMO plans, please review the plan of care and approve it. It will need to be FAXED BACK to us at [phone] for Medicare purposes. For Medicare only, by signing this I certify the plan of care. Please let me know if there are questions or concerns regarding this plan of care. Physician Signature: Date:
--- NOTE | 2020-10-18 12:11 | HP.PTREVAL ---
Dr. Ollie Graves, DO, It has been my pleasure to treat MARYCRUZ GUTIERREZ over the last 10 visits for R TKA 09/21/20. Please see the progress note below for an update on the physical therapy plan of care! Subjective: I had a set back last week Objective/Function: R knee pain 01/15. R knee ROM: 0-8-100. R knee MMT: 4-/5. Pt is progressing well towards Rx goals Plan Plan: R knee PROM/mobs, stretching and strengthening, balance and proprio, gait training, nustep, and HEP Goals Goal 1:: Decrease R knee pain x 50% to aid with ambulation Goal Time Frame: 4-6 Weeks Goal 2:: Increase R knee strength x 1 grade to aid with stair negotiation Goal Time Frame: 4-6 Weeks Goal 3:: Increase R knee ROM x 20 degrees to aid with restoring a normalized gait pattern Goal Time Frame: 4-6 Weeks Goal 4:: I with HEP Goal Time Frame: 4-6 Weeks Anticipated Interventions Patient/Client Instruction: Educate patient on: Condition, Plan of Care For the Purpose of:: To improve self management Therapeutic Exercise to Include: Strength training, Endurance training, Balance training, Flexibilty training, Gait and locomotor training, Passive ROM, Active ROM, Dynamic Lumbar Stabilization For the Purpose of:: To decrease pain, To increase ROM, To improve muscle performance and motor function Please do not hesitate to contact me at [phone] by phone or if you have questions or concerns regarding this new plan of care! Sincerely, Dionisio John, PT, ATC
--- NOTE | 2020-11-05 11:31 | HP.PTREVAL ---
Dr. Ollie Graves, DO, It has been my pleasure to treat MARYCRUZ GUTIERREZ over the last 18 visits for R TKA 09/21/20. Please see the progress note below for an update on the physical therapy plan of care! Subjective: I am doing so much better Objective/Function: R knee pain 12/15. R knee ROM: 0-8-110. R knee MMT: 3+/5 throughout and still painful. Pt is progressing well toward Rx goal Plan Plan: R knee PROM/mobs, stretching and strengthening, balance and proprio, gait training, nustep, and HEP Goals Goal 1:: Decrease R knee pain x 50% to aid with ambulation Goal Time Frame: 4-6 Weeks Goal Progress: Progressing Goal 2:: Increase R knee strength x 1 grade to aid with stair negotiation Goal Time Frame: 4-6 Weeks Goal Progress: Progressing Goal 3:: Increase R knee ROM x 20 degrees to aid with restoring a normalized gait pattern Goal Time Frame: 4-6 Weeks Goal Progress: Progressing Goal 4:: I with HEP Goal Time Frame: 4-6 Weeks Goal Progress: Progressing Anticipated Interventions Patient/Client Instruction: Educate patient on: Condition, Plan of Care For the Purpose of:: To improve self management Therapeutic Exercise to Include: Strength training, Endurance training, Balance training, Flexibilty training, Gait and locomotor training, Passive ROM, Active ROM, Dynamic Lumbar Stabilization For the Purpose of:: To decrease pain, To increase ROM, To improve muscle performance and motor function Please do not hesitate to contact me at [phone] by phone or if you have questions or concerns regarding this new plan of care! Sincerely, Dionisio John, PT, ATC
--- NOTE | 2020-12-10 11:03 | HP.PTDCSUM ---
It has been my pleasure to treat MARYCRUZ GUTIERREZ referred by Dr. Ollie Graves DO, with the diagnosis of R TKA 09/21/20 for a total of 29 visit(s). Discharge Date: Please see the following information for a summary of their discharge status. Subjective: Pt reports she feels rady for discharge R knee Pain Intensity (Out of 10): 1 % Improvement: 75 Objective/Function: R knee pain 10/17. R knee MMT: flex= 18.4, ext 24.3. R knee ROM: 0-4-110. Pt is I with HEP. Rx goals achieved Goal 1:: Decrease R knee pain x 50% to aid with ambulation Goal Progress: Goal Met Goal 2:: Increase R knee strength x 1 grade to aid with stair negotiation Goal Progress: Goal Met Goal 3:: Increase R knee ROM x 20 degrees to aid with restoring a normalized gait pattern Goal Progress: Goal Met Goal 4:: I with HEP Goal Progress: Goal Met Plan: Discharge If there are questions or concerns regarding this patient's physical therapy, please feel free to call me at [phone]. Thank you for the referral of this patient. Sincerely, Dionisio John, PT, ATC
== END 2020-12-10 19:00 | disposition home or self-care (01) ==
LOC: PT 10:30
PROVIDERS: PCP Family Medicine; Visit Provider Orthopaedic Surgery
DX: Z47.1 Aftercare following joint replacement surgery (principal); Z96.651 Presence of right artificial knee joint
CPT/HCPCS: 97110; 97140; 97161; 97164

== ENCOUNTER 2021-01-17 10:00 | Outpatient (RCR) | payer MEDICARE, OTHER, SELFPAY ==
--- NOTE | 2020-12-20 09:46 | HP.PTEVAL_ITS ---
Patient's Visit Information MARYCRUZ GUTIERREZ is a 70 year old F referred to Physical Therapy by Dr. Ollie Graves DO with a diagnosis of R TKA. Date of Evaluation: 12/20/20 Physical Therapist: Dionisio John PT, ATC - Visit Plan Frequency: 2-3x /Week Duration: 4-6 Weeks Plan: Aquatic therapy consisting of R knee stretching and strengthening, core strengthening, and HEP - Subjective DOS: 09/21/21. Pt reports she had a R TKA performed at that time and had land PT for 12 weeks. Pt reports after seeing her surgeon they agreed that she may benefit from further therapy in the aquatic setting. Pt reports she has very little pain today. Pt reports no sleep difficulty at this time. Pt notes she has difficulty with car and bath tub transfers, as well as negotiating stairs secondary to weakness. Pt also notes she has difficulty with walking for a prolonged distance secondary to weakness. pt denies tingling or numbness in R LE. 0/10 pain at rest, 5/10 pain at worst (when she attempts to negotiate her stairs) - Pain R Knee Pain Intensity (Out of 10): 0 Pain Intensity Range: 5 - Objective Neuro: B LE sensation is WNL to light touch. B achilles reflex= 2/3. ROM: R knee 0-8-105 degrees, L knee 0-105 degrees. MMT: R knee flex= 15.1, ext= 17.8; L knee flex= 19.9, ext= 23.1. TU.72. Girth: R knee @ patella= 40 cm, 6 above= 51 cm; L knee @ patella= 39 cm, 6 above= 51 cm - Goals Goal 1:: Decrease R knee pain x 50% to aid with ambulation Goal Time Frame: 4-6 Weeks Goal 2:: Increase R knee strength x 4-5 #/F to aid with stair negotiation Goal Time Frame: 4-6 Weeks Goal 3:: Increase R knee ext ROM x 5 degrees to aid with restoring a more normalized gait pattern Goal Time Frame: 4-6 Weeks Goal 4:: I with HEP Goal Time Frame: 4-6 Weeks - Rehabilitation Potential Physical Therapy Diagnosis: Pt has R knee pain, weakness, and limited ROM secondary to R TKA Rehabilitation Potential: Good - Anticipated Interventions Patient/Client Instruction: Educate patient on: Condition, Plan of Care For the Purpose of:: To improve self management Therapeutic Exercise to Include: Strength training, Flexibilty training, In an aquatic setting, Active ROM, Dynamic Lumbar Stabilization For the Purpose of:: To decrease pain, To increase ROM, To improve muscle performance and motor function Thank you for the opportunity to evaluate your patient. For Medicare and Medicare HMO plans, please review the plan of care and approve it. It will need to be FAXED BACK to us at [phone] for Medicare purposes. For Medicare only, by signing this I certify the plan of care. Please let me know if there are questions or concerns regarding this plan of care. Physician Signature: Date:
--- NOTE | 2021-01-17 11:53 | HP.PTDCSUM ---
It has been my pleasure to treat MARYCRUZ GUTIERREZ referred by Dr. Ollie Graves DO, with the diagnosis of R TKA for a total of 13 visit(s). Discharge Date: Please see the following information for a summary of their discharge status. Subjective: I am sore all over today because of the weather. Pt still has difficulty with stair negotiation R Knee Pain Intensity (Out of 10): 2 % Improvement: 75 Objective/Function: R knee pain 2/10. TUG= 7.29. Girth at patella= 41 cm. Girth 6 above patella= 48 cm. MMT: flex= 21.3, ext= 22.7. ROM: 0-108 degrees. Pt is I with HEP Goal 1:: Decrease R knee pain x 50% to aid with ambulation Goal Progress: Goal Met Goal 2:: Increase R knee strength x 4-5 #/F to aid with stair negotiation Goal Progress: Goal Met Goal 3:: Increase R knee ext ROM x 5 degrees to aid with restoring a more normalized gait pattern Goal Progress: Goal Met Goal 4:: I with HEP Goal Progress: Goal Met Plan: Discharge If there are questions or concerns regarding this patient's physical therapy, please feel free to call me at [phone]. Thank you for the referral of this patient. Sincerely, Dionisio John, PT, ATC
== END 2021-01-17 19:00 | disposition home or self-care (01) ==
LOC: PT 10:00
PROVIDERS: PCP Family Medicine; Referring Provider Orthopaedic Surgery; Visit Provider Orthopaedic Surgery
DX: Z47.1 Aftercare following joint replacement surgery (principal); Z96.651 Presence of right artificial knee joint
CPT/HCPCS: 97113; 97161; 97164

== ENCOUNTER → 2021-07-04 12:41 | Outpatient (CLI) | payer MEDICARE, OTHER, SELFPAY ==
--- NOTE | 2021-07-04 12:45 | BI_ITS ---
MAMMOGRAPHY - BILATERAL SCREENING REASON FOR EXAM: Female, 71 years old. Routine annual screening examination. PERTINENT HISTORY: Mother with breast cancer. Aunt with breast cancer. TECHNIQUE: Digital bilateral breast cortez (3D mammographic acquisition) in the CC and MLO projections. 2-D mediolateral oblique (MLO) and craniocaudad (CC) views of both breasts were obtained. CAD: Full Field Digital Mammography with Computer Added Detection was performed. COMPARISON: Comparison is made with prior study dated 07/01/2020 and 06/30/2019. FINDINGS: Breast Composition: There are scattered areas of fibroglandular density. There are no dominant masses or suspicious calcifications. Stable benign-appearing calcifications in the deep slightly lateral aspect No other significant abnormalities are identified. There has been no significant change since the prior study. BI/SCRN MAMM (CAD)W/CORTEZ BILAT IMPRESSION: Stable bilateral screening mammogram. Yearly follow-up mammogram recommended. (A) ASSESSMENT CATEGORY: BIRADS Category 2: Benign. A letter regarding these results will be sent to the patient by the facility within 30 days. Approximately 10% of breast cancers are not detected by mammography. A normal mammogram should not delay biopsy of a clinically suspicious abnormality. [id number] Electronically Signed: Julio Ta MD at 14:26 EDT , Service support ,
== END ==
PROVIDERS: PCP Family Medicine; Referring Provider Family Medicine; Visit Provider Family Medicine
DX: Z12.31 Encounter for screening mammogram for malignant neoplasm of breast (principal)
CPT/HCPCS: 77063; 77067